=== PATIENT | female | born 1950 | race Two or more races ===

== ENCOUNTER → 2016-03-16 | Outpatient (CLI) | payer MEDICARE, OTHER ==
[2016-03-16 07:43] LABS: Basophils # (A) 0.1 k/uL (0-0.2); Basophils % (A) 2 %; CH 31.9; CHCM 33.6; Eosinophils # (A) 0.2 k/uL (0-0.7); Eosinophils % (A) 3 %; HDW 2.65; HGB 14.3 gm/dL (11.4-16.0); Luc # (Auto) 0.14; Luc % (Auto) 3; Lymphocytes # (A) 1.4 k/uL (1.0-4.8); Lymphocytes % (A) 28 %; MCH 30.9 pg (25.0-35.0); MCHC 32.4 g/dL (31.0-37.0); MCV 95.3 fL (80.0-100.0); Mean Platelet Volume 7.3; Monocytes # (A) 0.4 k/uL (0-1.0); Monocytes % (A) 8 %; Neutrophils # (A) 2.9 k/uL (1.3-7.7); Neutrophils % (A) 56 %; RBC 4.62 m/uL (3.80-5.40); RDW 12.7 % (11.5-15.5); WBC 5.1 k/uL (3.8-10.6); WBC (Perox) 5.35
[2016-03-16 08:54] LABS: ALT 37 U/L (9-52); AST 25 U/L (14-36); Alkaline Phosphatase 60 U/L (38-126); Anion Gap 11 mmol/L; Blood Urea Nitrogen 15 mg/dL (7-17); Calcium 9.9 mg/dL (8.4-10.2); Carbon Dioxide 29 mmol/L (22-30); Chloride 104 mmol/L (98-107); Cholesterol 215 mg/dL (<200); Glucose 107 mg/dL (74-99); HDL Cholesterol 62 mg/dL (40-60); Non-African American GFR(MDRD) >60 (>60 ml/min/1.73 sqM); Potassium 4.3 mmol/L (3.5-5.1); Sodium 144 mmol/L (137-145); Total Bilirubin 0.7 mg/dL (0.2-1.3); Total Protein 7.5 g/dL (6.3-8.2); Triglycerides 334 mg/dL (<150)
[2016-03-16 09:58] LABS: Vitamin B12 281 pg/mL (239-931)
[2016-03-16 12:00] LABS: Hemoglobin A1C 5.8 % (4.2-6.1)
== END | disposition home or self-care (01) ==
LOC: LABWHC1 07:02
PROVIDERS: ATTEND Family Medicine
DX: I10 Essential (primary) hypertension (principal); E78.2 Mixed hyperlipidemia; E11.65 Type 2 diabetes mellitus with hyperglycemia; E55.9 Vitamin D deficiency, unspecified; M79.604 Pain in right leg; I73.9 Peripheral vascular disease, unspecified; E03.9 Hypothyroidism, unspecified
CPT/HCPCS: 36415; 80053; 80061; 82306; 82607; 82746; 83036; 84439; 84443; 85025

== ENCOUNTER → 2016-06-15 | Outpatient (CLI) | payer MEDICARE, OTHER ==
[2016-06-15 07:44] LABS: Cholesterol 249 mg/dL (<200); HDL Cholesterol 68 mg/dL (40-60)
[2016-06-15 07:55] LABS: Triglycerides 536 mg/dL (<150)
== END | disposition home or self-care (01) ==
LOC: LABWHC1 07:01
PROVIDERS: ATTEND Family Medicine
DX: E78.2 Mixed hyperlipidemia (principal); E55.9 Vitamin D deficiency, unspecified; I10 Essential (primary) hypertension
CPT/HCPCS: 36415; 80061; 82306; 83721

== ENCOUNTER → 2016-06-21 | Outpatient (CLI) | payer MEDICARE, OTHER ==
[2016-06-21 11:19] LABS: Blood Urea Nitrogen 18 mg/dL (7-17); Non-African American GFR(MDRD) >60 (>60 ml/min/1.73 sqM)
--- NOTE | 2016-06-21 12:05 | CT ---
EXAMINATION TYPE: CT brain wo/w con DATE OF EXAM: 06/21/2016 11:46 AM COMPARISON: Previous study dated 11/23/2015 HISTORY: Follow up to meningioma CT DLP: 1983.1 mGycm Automated exposure control for dose reduction was used. CONTRAST: CT scan of the head is performed without and with IV Contrast, patient injected with 100 mL of Omnipa que 300. FINDINGS: A 2.4 x 2.4 x 1.8 cm partially calcified right CP angle mass lesion is again identified. Th is shows diffuse, heterogenous enhancement. There has been no significant interval change in size. Central structures are midline. There is no evidence of hydrocephalus. I do not see evidence of intra cranial blood. Visualized portions of the paranasal sinuses and mastoids are clear. No depressed skull lesion is see n. IMPRESSION: STABLE RIGHT CP ANGLE PARTIALLY CALCIFIED MASS LIKELY REPRESENTING AN A MENINGIOMA EXTENDING FROM THE TENTORIUM.
== END | disposition home or self-care (01) ==
LOC: RADCTMAIN 10:44
DX: G93.89 Other specified disorders of brain (principal)
CPT/HCPCS: 82565; 84520; 70470; 36415; Q9967

== ENCOUNTER → 2016-08-02 | Outpatient (CLI) | payer MEDICARE, OTHER ==
[2016-08-02 07:25] LABS: CH 31.6; CHCM 33.1; HCT 40.5 % (34.0-46.0); HDW 2.48; HGB 13.5 gm/dL (11.4-16.0); MCH 31.8 pg (25.0-35.0); MCHC 33.2 g/dL (31.0-37.0); MCV 95.8 fL (80.0-100.0); Mean Platelet Volume 7.2; RBC 4.23 m/uL (3.80-5.40); RDW 13.6 % (11.5-15.5); WBC 5.3 k/uL (3.8-10.6)
[2016-08-02 07:30] LABS: INR 1.1 (<1.1); Prothrombin Time 10.8 sec (9.0-12.0)
[2016-08-02 08:34] LABS: ALT 48 U/L (9-52); AST 32 U/L (14-36); Alkaline Phosphatase 65 U/L (38-126); Anion Gap 13 mmol/L; Blood Urea Nitrogen 13 mg/dL (7-17); Calcium 9.8 mg/dL (8.4-10.2); Carbon Dioxide 26 mmol/L (22-30); Chloride 104 mmol/L (98-107); Glucose 112 mg/dL (74-99); Non-African American GFR(MDRD) >60 (>60 ml/min/1.73 sqM); Potassium 4.9 mmol/L (3.5-5.1); Sodium 143 mmol/L (137-145); Total Bilirubin 0.8 mg/dL (0.2-1.3); Total Protein 6.9 g/dL (6.3-8.2)
== END | disposition home or self-care (01) ==
LOC: LABWHC1 06:40
PROVIDERS: ATTEND Internal Medicine Cardiovascular Disease
DX: I73.9 Peripheral vascular disease, unspecified (principal)
CPT/HCPCS: 36415; 80053; 85027; 85610

== ENCOUNTER → 2016-09-02 | Outpatient (CLI) | payer MEDICARE, OTHER ==
[2016-09-02 15:00] LABS: INR 1.1 (<1.2); Prothrombin Time 10.7 sec (9.0-12.0)
[2016-09-02 15:02] LABS: CH 31.7; CHCM 33.5; HCT 38.9 % (34.0-46.0); HDW 2.63; HGB 13.3 gm/dL (11.4-16.0); MCH 32.4 pg (25.0-35.0); MCHC 34.2 g/dL (31.0-37.0); MCV 94.9 fL (80.0-100.0); Mean Platelet Volume 7.5; RDW 13.4 % (11.5-15.5); WBC 5.1 k/uL (3.8-10.6)
[2016-09-02 15:11] LABS: ALT 32 U/L (9-52); AST 24 U/L (14-36); Alkaline Phosphatase 69 U/L (38-126); Anion Gap 12 mmol/L; Blood Urea Nitrogen 16 mg/dL (7-17); Calcium 9.7 mg/dL (8.4-10.2); Carbon Dioxide 27 mmol/L (22-30); Chloride 101 mmol/L (98-107); Glucose 118 mg/dL (74-99); Non-African American GFR(MDRD) >60 (>60 ml/min/1.73 sqM); Potassium 4.9 mmol/L (3.5-5.1); Sodium 140 mmol/L (137-145); Total Bilirubin 0.6 mg/dL (0.2-1.3); Total Protein 7.4 g/dL (6.3-8.2)
== END | disposition home or self-care (01) ==
LOC: LABWHC1 14:37
PROVIDERS: ATTEND Internal Medicine Cardiovascular Disease
DX: Z01.818 Encounter for other preprocedural examination (principal); I73.9 Peripheral vascular disease, unspecified
CPT/HCPCS: 36415; 80053; 85027; 85610

== ENCOUNTER → 2016-09-24 | Outpatient (CLI) | payer MEDICARE, OTHER ==
[2016-09-24 07:47] LABS: ALT 43 U/L (9-52); AST 31 U/L (14-36); Alkaline Phosphatase 68 U/L (38-126); Anion Gap 10 mmol/L; Blood Urea Nitrogen 9 mg/dL (7-17); Calcium 9.2 mg/dL (8.4-10.2); Carbon Dioxide 26 mmol/L (22-30); Chloride 105 mmol/L (98-107); Cholesterol 244 mg/dL (<200); Glucose 120 mg/dL (74-99); HDL Cholesterol 58 mg/dL (40-60); Non-African American GFR(MDRD) >60 (>60 ml/min/1.73 sqM); Potassium 4.5 mmol/L (3.5-5.1); Sodium 141 mmol/L (137-145); Total Bilirubin 0.8 mg/dL (0.2-1.3); Total Protein 7.1 g/dL (6.3-8.2)
[2016-09-24 07:51] LABS: Basophils % (A) 1 %; CH 32.1; CHCM 33.3; Eosinophils # (A) 0.2 k/uL (0-0.7); Eosinophils % (A) 4 %; HCT 42.2 % (34.0-46.0); HDW 2.67; HGB 13.6 gm/dL (11.4-16.0); Luc # (Auto) 0.14; Luc % (Auto) 3; Lymphocytes # (A) 1.4 k/uL (1.0-4.8); Lymphocytes % (A) 31 %; MCH 31.3 pg (25.0-35.0); MCHC 32.3 g/dL (31.0-37.0); MCV 96.9 fL (80.0-100.0); Mean Platelet Volume 7.6; Monocytes # (A) 0.4 k/uL (0-1.0); Monocytes % (A) 8 %; Neutrophils # (A) 2.3 k/uL (1.3-7.7); Neutrophils % (A) 53 %; RBC 4.36 m/uL (3.80-5.40); RDW 14.5 % (11.5-15.5); WBC 4.5 k/uL (3.8-10.6); WBC (Perox) 4.43
[2016-09-24 13:47] LABS: Hemoglobin A1C 6.1 % (4.2-6.1)
== END | disposition home or self-care (01) ==
LOC: LABWHC1 06:42
PROVIDERS: ATTEND Family Medicine
DX: E78.5 Hyperlipidemia, unspecified (principal); E55.9 Vitamin D deficiency, unspecified; E03.9 Hypothyroidism, unspecified; I10 Essential (primary) hypertension; E11.65 Type 2 diabetes mellitus with hyperglycemia
CPT/HCPCS: 36415; 80053; 80061; 82306; 83036; 84443; 85025

== ENCOUNTER → 2017-05-26 | Outpatient (CLI) | payer MEDICARE, OTHER ==
[2017-05-26 07:41] LABS: Basophils % (A) 1 %; Eosinophils # (A) 0.2 k/uL (0-0.7); Eosinophils % (A) 5 %; HCT 41.6 % (34.0-46.0); Lymphocytes # (A) 1.8 k/uL (1.0-4.8); Lymphocytes % (A) 37 %; MCH 31.2 pg (25.0-35.0); MCHC 33.6 g/dL (31.0-37.0); Mean Platelet Volume 7.3; Monocytes # (A) 0.4 k/uL (0-1.0); Monocytes % (A) 8 %; Neutrophils # (A) 2.2 k/uL (1.3-7.7); Neutrophils % (A) 47 %; Platelet Count 115 k/uL (150-450); RBC 4.48 m/uL (3.80-5.40); RDW 13.2 % (11.5-15.5); WBC 4.8 k/uL (3.8-10.6)
[2017-05-26 07:49] LABS: ALT 41 U/L (9-52); AST 35 U/L (14-36); Albumin 4.5 g/dL (3.5-5.0); Alkaline Phosphatase 63 U/L (38-126); Anion Gap 15 mmol/L; Blood Urea Nitrogen 14 mg/dL (7-17); Calcium 9.5 mg/dL (8.4-10.2); Carbon Dioxide 24 mmol/L (22-30); Chloride 105 mmol/L (98-107); Cholesterol 257 mg/dL (<200); Glucose 124 mg/dL (74-99); HDL Cholesterol 62 mg/dL (40-60); Potassium 4.6 mmol/L (3.5-5.1); Sodium 144 mmol/L (137-145); Total Bilirubin 0.7 mg/dL (0.2-1.3); Total Protein 7.4 g/dL (6.3-8.2); Triglycerides 453 mg/dL (<150)
[2017-05-26 08:05] LABS: T4, Free (Free Thyroxine) 0.91 ng/dL (0.78-2.19)
[2017-05-26 15:38] LABS: Hemoglobin A1C 6.5 % (4.0-6.0)
== END | disposition home or self-care (01) ==
LOC: LABWHC1 06:35
PROVIDERS: ATTEND Nurse Practitioner Family
DX: E03.9 Hypothyroidism, unspecified (principal); E78.2 Mixed hyperlipidemia; I10 Essential (primary) hypertension; E55.9 Vitamin D deficiency, unspecified; E11.65 Type 2 diabetes mellitus with hyperglycemia
CPT/HCPCS: 36415; 80053; 80061; 82306; 83036; 83721; 84439; 84443; 85025

== ENCOUNTER → 2017-06-24 | Outpatient (CLI) | payer MEDICARE, OTHER ==
[2017-06-24 07:45] LABS: HCT 40.1 % (34.0-46.0); HGB 13.4 gm/dL (11.4-16.0); MCH 31.6 pg (25.0-35.0); MCHC 33.4 g/dL (31.0-37.0); MCV 94.8 fL (80.0-100.0); Platelet Count 136 k/uL (150-450); RBC 4.23 m/uL (3.80-5.40); RDW 13.5 % (11.5-15.5)
[2017-06-24 07:48] LABS: Prothrombin Time 10.2 sec (9.0-12.0)
[2017-06-24 08:04] LABS: ALT 45 U/L (9-52); AST 36 U/L (14-36); Albumin 4.6 g/dL (3.5-5.0); Alkaline Phosphatase 59 U/L (38-126); Anion Gap 17 mmol/L; Blood Urea Nitrogen 15 mg/dL (7-17); Calcium 9.6 mg/dL (8.4-10.2); Carbon Dioxide 23 mmol/L (22-30); Chloride 103 mmol/L (98-107); Glucose 103 mg/dL (74-99); Potassium 4.8 mmol/L (3.5-5.1); Sodium 143 mmol/L (137-145); Total Bilirubin 0.6 mg/dL (0.2-1.3); Total Protein 7.2 g/dL (6.3-8.2)
[2017-06-24 11:12] LABS: Iron Saturation 19.77 (12.00-45.00)
[2017-06-24 11:26] LABS: Folate, Serum 21.6 ng/mL
== END | disposition home or self-care (01) ==
LOC: LABWHC1 06:50
PROVIDERS: ATTEND Family Medicine
DX: Z01.812 Encounter for preprocedural laboratory examination (principal); L60.9 Nail disorder, unspecified; I73.9 Peripheral vascular disease, unspecified
CPT/HCPCS: 36415; 80053; 82607; 82728; 82746; 83540; 83550; 85027; 85610; 86038

== ENCOUNTER → 2017-11-14 | Outpatient (CLI) | payer MEDICARE, OTHER ==
[2017-11-14 07:30] LABS: Basophils % (A) 0 %; Eosinophils # (A) 0.1 k/uL (0-0.7); Eosinophils % (A) 2 %; HCT 41.2 % (34.0-46.0); HGB 13.2 gm/dL (11.4-16.0); Lymphocytes # (A) 1.8 k/uL (1.0-4.8); Lymphocytes % (A) 30 %; MCH 30.3 pg (25.0-35.0); MCHC 31.9 g/dL (31.0-37.0); MCV 94.7 fL (80.0-100.0); Mean Platelet Volume 7.3; Monocytes # (A) 0.4 k/uL (0-1.0); Monocytes % (A) 7 %; Neutrophils # (A) 3.5 k/uL (1.3-7.7); Neutrophils % (A) 58 %; Platelet Count 133 k/uL (150-450); RBC 4.35 m/uL (3.80-5.40); RDW 13.9 % (11.5-15.5); WBC 6.1 k/uL (3.8-10.6)
[2017-11-14 07:31] LABS: INR 1.2 (<1.2); Prothrombin Time 11.1 sec (9.0-12.0)
[2017-11-14 09:34] LABS: ALT 40 U/L (9-52); AST 77 U/L (14-36); Albumin 4.4 g/dL (3.5-5.0); Alkaline Phosphatase 61 U/L (38-126); Anion Gap 14 mmol/L; Blood Urea Nitrogen 10 mg/dL (7-17); Calcium 9.4 mg/dL (8.4-10.2); Carbon Dioxide 24 mmol/L (22-30); Chloride 106 mmol/L (98-107); Cholesterol 251 mg/dL (<200); Glucose 115 mg/dL (74-99); HDL Cholesterol 60 mg/dL (40-60); LDL Cholesterol,Calculated 115 mg/dL (0-99); Potassium 4.5 mmol/L (3.5-5.1); Sodium 144 mmol/L (137-145); Total Bilirubin 0.6 mg/dL (0.2-1.3); Total Protein 7.4 g/dL (6.3-8.2); Triglycerides 378 mg/dL (<150)
[2017-11-14 09:50] LABS: T4, Free (Free Thyroxine) 1.19 ng/dL (0.78-2.19)
[2017-11-14 13:50] LABS: Hemoglobin A1C 6.4 % (4.0-6.0)
== END | disposition home or self-care (01) ==
LOC: LABWHC1 06:35
PROVIDERS: ATTEND Nurse Practitioner Family
DX: Z01.812 Encounter for preprocedural laboratory examination (principal); I73.9 Peripheral vascular disease, unspecified; I10 Essential (primary) hypertension; E03.9 Hypothyroidism, unspecified; E11.65 Type 2 diabetes mellitus with hyperglycemia; E78.2 Mixed hyperlipidemia; E55.9 Vitamin D deficiency, unspecified
CPT/HCPCS: 36415; 80053; 80061; 82306; 83036; 84439; 84443; 84481; 85025; 85610

== ENCOUNTER → 2018-01-08 | Outpatient (CLI) | payer MEDICARE, OTHER ==
--- NOTE | 2018-01-08 14:02 | US ---
EXAMINATION TYPE: US venous doppler duplex LE RT DATE OF EXAM: 01/08/2018 1:41 PM COMPARISON: NONE CLINICAL HISTORY: M79.604 RT LEG PAIN. SIDE PERFORMED: Right TECHNIQUE: The lower extremity deep venous system is examined utilizing real time linear array sonog damari with graded compression, doppler sonography and color-flow sonography. VESSELS IMAGED: External Iliac Vein (EIV) Common Femoral Vein Deep Femoral Vein Greater Saphenous Vein * Femoral Vein Popliteal Vein Small Saphenous Vein * Proximal Calf Veins (* superficial vessels) Patient has scarring in groin from arterial surgery, making that aspect of exam technically difficult . Right Leg: Negative for DVT Grayscale, color doppler, spectral doppler imaging performed of the deep veins of the right lower ex tremity. There is normal flow, compressibility, vascular waveforms. IMPRESSION: No ultrasound evidence for acute DVT in the right lower extremity.
== END | disposition home or self-care (01) ==
LOC: RADUSWWP 12:39
PROVIDERS: ATTEND Family Medicine
DX: M79.604 Pain in right leg (principal)

== ENCOUNTER → 2018-07-24 | Outpatient (CLI) | payer MEDICARE, OTHER ==
[2018-07-24 07:38] LABS: Basophils # (A) 0.1 k/uL (0-0.2); Basophils % (A) 1 %; Eosinophils # (A) 0.2 k/uL (0-0.7); Eosinophils % (A) 4 %; HCT 40.5 % (34.0-46.0); HGB 13.2 gm/dL (11.4-16.0); Lymphocytes # (A) 1.9 k/uL (1.0-4.8); Lymphocytes % (A) 35 %; MCH 30.4 pg (25.0-35.0); MCHC 32.6 g/dL (31.0-37.0); MCV 93.3 fL (80.0-100.0); Mean Platelet Volume 6.8; Monocytes # (A) 0.5 k/uL (0-1.0); Monocytes % (A) 8 %; Neutrophils # (A) 2.6 k/uL (1.3-7.7); Neutrophils % (A) 48 %; Platelet Count 126 k/uL (150-450); RBC 4.35 m/uL (3.80-5.40); WBC 5.4 k/uL (3.8-10.6)
[2018-07-24 11:10] LABS: Vitamin D 25 Hydroxy 17.2 ng/mL (30.0-100.0)
[2018-07-24 11:30] LABS: Folate, Serum 14.6 ng/mL
[2018-07-24 11:31] LABS: ALT 27 U/L (8-44); AST 27 U/L (13-35); African American GFR (CKD) 87.8 (60.0-200.0); Albumin/Globulin Ratio 2.24 (1.60-3.17); Alkaline Phosphatase 71 U/L (41-126); BUN/Creat Ratio 16.25 Ratio (12.00-20.00); Calcium 9.8 mg/dL (8.7-10.3); Carbon Dioxide 26.5 mmol/L (21.6-31.8); Chloride 103 mmol/L (96-109); Cholesterol 269 mg/dL (0-200); Globulin 2.1 g/dL (1.6-3.3); Glucose 125 mg/dL (70-110); Potassium 4.7 mmol/L (3.5-5.5); Sodium 140 mmol/L (135-145); Total Bilirubin 0.8 mg/dL (0.2-1.2); Total Protein 6.8 g/dL (6.2-8.2); Uric Acid 7.6 mg/dL (2.9-7.7)
[2018-07-24 17:07] LABS: Hemoglobin A1C 6.7 % (4.0-6.0)
== END | disposition home or self-care (01) ==
LOC: LABWHC1 06:33
PROVIDERS: ATTEND Family Medicine
DX: E11.65 Type 2 diabetes mellitus with hyperglycemia (principal); E78.2 Mixed hyperlipidemia; E03.9 Hypothyroidism, unspecified; I10 Essential (primary) hypertension; E55.9 Vitamin D deficiency, unspecified
CPT/HCPCS: 36415; 80053; 80061; 82043; 82306; 82570; 82607; 82746; 83036; 83721; 84439; 84443; 84481; 84550; 85025

== ENCOUNTER → 2018-10-15 | Outpatient (CLI) | payer MEDICARE, OTHER ==
[2018-10-15 07:37] LABS: Basophils % (A) 1 %; Eosinophils # (A) 0.2 k/uL (0-0.7); Eosinophils % (A) 4 %; HCT 39.5 % (34.0-46.0); Lymphocytes # (A) 1.8 k/uL (1.0-4.8); Lymphocytes % (A) 34 %; MCH 30.3 pg (25.0-35.0); MCHC 32.8 g/dL (31.0-37.0); MCV 92.4 fL (80.0-100.0); Mean Platelet Volume 6.9; Monocytes # (A) 0.4 k/uL (0-1.0); Monocytes % (A) 8 %; Neutrophils # (A) 2.8 k/uL (1.3-7.7); Neutrophils % (A) 50 %; Platelet Count 142 k/uL (150-450); RBC 4.27 m/uL (3.80-5.40); RDW 13.8 % (11.5-15.5); WBC 5.5 k/uL (3.8-10.6)
[2018-10-15 09:16] LABS: Erythrocyte Sedimentation Rate 13 mm/hr (0-20)
[2018-10-15 11:58] LABS: Rheumatoid Factor 5 IU/mL (0-15)
[2018-10-15 12:22] LABS: African American GFR (CKD) 87.8 (60.0-200.0); Albumin 4.7 g/dL (3.80-4.90); Albumin/Globulin Ratio 2.76 (1.60-3.17); Anion Gap 11.1 mmol/L (4.00-12.00); Calcium 9.7 mg/dL (8.7-10.3); Carbon Dioxide 24.9 mmol/L (21.6-31.8); Globulin 1.7 g/dL (1.6-3.3); Potassium 4.8 mmol/L (3.5-5.5); Total Bilirubin 0.5 mg/dL (0.2-1.2); Total Protein 6.4 g/dL (6.2-8.2); Uric Acid 4.7 mg/dL (2.9-7.7)
[2018-10-15 12:56] LABS: Folate, Serum >24.0 ng/mL
== END | disposition home or self-care (01) ==
LOC: LABWHC1 07:00
PROVIDERS: ATTEND Family Medicine
DX: R20.2 Paresthesia of skin (principal); I73.9 Peripheral vascular disease, unspecified; M79.674 Pain in right toe(s)
CPT/HCPCS: 36415; 80053; 82607; 82746; 84550; 85025; 85652; 86038; 86431

== ENCOUNTER → 2019-01-08 | Outpatient (CLI) | payer MEDICARE, OTHER ==
--- NOTE | 2019-01-08 12:21 | CT ---
EXAMINATION TYPE: CT lumbar spine wo con DATE OF EXAM: 01/08/2019 COMPARISON: None HISTORY: Right foot weakness and numbness CT DLP: 474.[address] of the lumbar spine was performed. Bone and soft tissue window settings are submitted as well as coronal and sagittal reconstructions. L1-L2: Normal disc space height. No disc herniation protrusion or central stenosis. No facet joint arthropathy. No evidence for foraminal encroachment. L2-L3: Normal disc space height. No disc herniation protrusion or central stenosis. No facet joint arthropathy. No evidence for foraminal encroachment. L3-L4: Mild to moderate degenerative disc space narrowing. Circumferential disc bulge with effacement ventral thecal sac.. Mild bilateral lateral recess stenosis. No evidence for central stenosis. Mild bilateral foraminal encroachment. L4-L5: Moderate degenerative disc space narrowing. Circumferential disc bulge. Effacement ventral the betty sac. Hypertrophy of the ligamentum flavum and facet joint arthropathy resulting in moderate centr al stenosis. L5-S1: Normal disc space height. No disc herniation protrusion or central stenosis. No facet joint arthropathy. No evidence for foraminal encroachment. No paraspinal masses are identified. Lumbar segments are free of fracture. 3.8 cm infra-abdominal ao rtic aneurysm. IMPRESSION: 1. Moderate central stenosis L4-5 as discussed. 2. Bilateral lateral recess stenosis suspected at L3-4.
== END ==
LOC: RADCTMAIN 11:29
PROVIDERS: ATTEND Family Medicine
DX: M48.061 Spinal stenosis, lumbar region without neurogenic claudication (principal)
CPT/HCPCS: 72131

== ENCOUNTER → 2019-03-02 | Outpatient (CLI) | payer MEDICARE, OTHER ==
[2019-03-02 08:00] LABS: Basophils % (A) 1 %; Eosinophils # (A) 0.2 k/uL (0-0.7); Eosinophils % (A) 3 %; HCT 41.4 % (34.0-46.0); HGB 13.7 gm/dL (11.4-16.0); Lymphocytes # (A) 1.7 k/uL (1.0-4.8); Lymphocytes % (A) 30 %; MCHC 33.2 g/dL (31.0-37.0); MCV 93.5 fL (80.0-100.0); Mean Platelet Volume 7.9; Monocytes # (A) 0.5 k/uL (0-1.0); Monocytes % (A) 8 %; Neutrophils # (A) 3.1 k/uL (1.3-7.7); Neutrophils % (A) 55 %; Platelet Count 148 k/uL (150-450); RBC 4.43 m/uL (3.80-5.40); RDW 13.3 % (11.5-15.5); WBC 5.6 k/uL (3.8-10.6)
[2019-03-02 08:05] LABS: Prothrombin Time 10.2 sec (9.0-12.0)
[2019-03-02 12:55] LABS: Hemoglobin A1C 6.3 % (4.0-6.0)
[2019-03-02 12:56] LABS: African American GFR (CKD) 103.2 (60.0-200.0); Albumin 4.8 g/dL (3.80-4.90); Albumin/Globulin Ratio 2.53 (1.60-3.17); Anion Gap 11.6 mmol/L (4.00-12.00); BUN/Creat Ratio 12.86 Ratio (12.00-20.00); Calcium 9.9 mg/dL (8.7-10.3); Carbon Dioxide 26.4 mmol/L (21.6-31.8); Chol/HDL Ratio 4.58; Globulin 1.9 g/dL (1.6-3.3); Potassium 5.3 mmol/L (3.5-5.5); Total Bilirubin 0.6 mg/dL (0.2-1.2); Total Protein 6.7 g/dL (6.2-8.2)
== END | disposition home or self-care (01) ==
LOC: LABWHC1 06:33
PROVIDERS: ATTEND Internal Medicine Cardiovascular Disease
DX: Z01.810 Encounter for preprocedural cardiovascular examination (principal); Z01.812 Encounter for preprocedural laboratory examination; I73.9 Peripheral vascular disease, unspecified; I10 Essential (primary) hypertension; E78.2 Mixed hyperlipidemia; E11.65 Type 2 diabetes mellitus with hyperglycemia; E55.9 Vitamin D deficiency, unspecified
CPT/HCPCS: 36415; 80053; 80061; 83036; 83721; 84443; 84550; 85025; 85610

== ENCOUNTER → 2019-03-23 | Outpatient (CLI) | payer MEDICARE, OTHER ==
[2019-03-23 07:34] LABS: HCT 39.6 % (34.0-46.0); MCH 30.5 pg (25.0-35.0); MCHC 32.8 g/dL (31.0-37.0); MCV 92.9 fL (80.0-100.0); Mean Platelet Volume 7.5; Platelet Count 129 k/uL (150-450); RBC 4.26 m/uL (3.80-5.40); RDW 13.5 % (11.5-15.5); WBC 5.4 k/uL (3.8-10.6)
[2019-03-23 08:02] LABS: INR 0.9 (<1.2); Prothrombin Time 9.9 sec (9.0-12.0)
[2019-03-23 11:49] LABS: African American GFR (CKD) 76.1 (60.0-200.0); Albumin 4.5 g/dL (3.80-4.90); Albumin/Globulin Ratio 2.37 (1.60-3.17); Anion Gap 11.5 mmol/L (4.00-12.00); BUN/Creat Ratio 15.56 Ratio (12.00-20.00); Calcium 9.2 mg/dL (8.7-10.3); Carbon Dioxide 24.5 mmol/L (21.6-31.8); Globulin 1.9 g/dL (1.6-3.3); Non-African American GFR(CKD) 65.7 (60.0-200.0); Potassium 4.8 mmol/L (3.5-5.5); Total Bilirubin 0.5 mg/dL (0.3-1.2); Total Protein 6.4 g/dL (6.2-8.2)
== END | disposition home or self-care (01) ==
LOC: LABWHC1 06:46
PROVIDERS: ATTEND Internal Medicine Cardiovascular Disease
DX: Z01.818 Encounter for other preprocedural examination (principal); I73.9 Peripheral vascular disease, unspecified
CPT/HCPCS: 36415; 80053; 85027; 85610

== ENCOUNTER → 2019-12-01 | Outpatient (CLI) | payer MEDICARE, OTHER ==
[2019-12-01 07:57] LABS: Basophils % (A) 1 %; Eosinophils # (A) 0.1 k/uL (0-0.7); Eosinophils % (A) 3 %; HCT 42.7 % (34.0-46.0); HGB 13.1 gm/dL (11.4-16.0); Hypochromasia Slight; Lymphocytes # (A) 1.5 k/uL (1.0-4.8); Lymphocytes % (A) 31 %; MCH 28.9 pg (25.0-35.0); MCHC 30.7 g/dL (31.0-37.0); MCV 93.9 fL (80.0-100.0); Mean Platelet Volume 7.5; Monocytes # (A) 0.4 k/uL (0-1.0); Monocytes % (A) 7 %; Neutrophils # (A) 2.6 k/uL (1.3-7.7); Neutrophils % (A) 55 %; Platelet Count 116 k/uL (150-450); RBC 4.55 m/uL (3.80-5.40); WBC 4.8 k/uL (3.8-10.6)
[2019-12-01 11:41] LABS: African American GFR (CKD) 87.2 (60.0-200.0); Albumin 4.6 g/dL (3.80-4.90); Albumin/Globulin Ratio 2.19 (1.60-3.17); Anion Gap 10.6 mmol/L (4.00-12.00); BUN/Creat Ratio 16.25 Ratio (12.00-20.00); Calcium 9.7 mg/dL (8.7-10.3); Carbon Dioxide 25.4 mmol/L (21.6-31.8); Chol/HDL Ratio 4.16; Globulin 2.1 g/dL (1.6-3.3); LDL Cholesterol,Calculated 139.6 mg/dL (0.0-131.0); Non-African American GFR(CKD) 75.2 (60.0-200.0); Potassium 5.7 mmol/L (3.5-5.5); Total Bilirubin 0.8 mg/dL (0.2-1.2); Total Protein 6.7 g/dL (6.2-8.2); Uric Acid 6.6 mg/dL (2.9-7.7); VLDL Calculation 53.4 mg/dL (5.00-40.00)
[2019-12-01 12:20] LABS: Folate, Serum 20.3 ng/mL
[2019-12-01 17:19] LABS: Hemoglobin A1C 6.2 % (4.0-6.0)
== END | disposition home or self-care (01) ==
LOC: LABWHC1 07:11
PROVIDERS: ATTEND Nurse Practitioner Family
DX: E78.2 Mixed hyperlipidemia (principal); E55.9 Vitamin D deficiency, unspecified; E11.65 Type 2 diabetes mellitus with hyperglycemia; I10 Essential (primary) hypertension; I73.9 Peripheral vascular disease, unspecified; M10.9 Gout, unspecified; R20.2 Paresthesia of skin
CPT/HCPCS: 36415; 80053; 80061; 82306; 82607; 82746; 83036; 84443; 84550; 85025

== ENCOUNTER → 2019-12-31 | Outpatient (CLI) | payer MEDICARE, OTHER ==
[2019-12-31 15:18] LABS: African American GFR (CKD) 87.2 (60.0-200.0); Albumin 4.6 g/dL (3.80-4.90); Albumin/Globulin Ratio 2.19 (1.60-3.17); Anion Gap 10.6 mmol/L (4.00-12.00); BUN/Creat Ratio 17.5 Ratio (12.00-20.00); Calcium 9.6 mg/dL (8.7-10.3); Carbon Dioxide 25.4 mmol/L (21.6-31.8); Globulin 2.1 g/dL (1.6-3.3); Non-African American GFR(CKD) 75.2 (60.0-200.0); Potassium 4.6 mmol/L (3.5-5.5); Total Bilirubin 0.8 mg/dL (0.3-1.2); Total Protein 6.7 g/dL (6.2-8.2)
== END | disposition home or self-care (01) ==
LOC: LABWHC1 07:07
PROVIDERS: ATTEND Family Medicine
DX: I10 Essential (primary) hypertension (principal)
CPT/HCPCS: 36415; 80053

== ENCOUNTER → 2020-05-29 | Outpatient (CLI) | payer MEDICARE, OTHER ==
[2020-05-29 15:11] LABS: Basophils # (A) 0.04 X 10*3/uL (0.00-0.10); Basophils % (A) 0.6 %; Eosinophils # (A) 0.12 X 10*3/uL (0.04-0.35); Eosinophils % (A) 1.9 %; HCT 43.8 % (37.2-46.3); HGB 13.4 g/dL (12.0-15.0); Lymphocytes # (A) 1.88 X 10*3/uL (0.90-5.00); Lymphocytes % (A) 29.2 %; MCH 27.5 pg (27.0-32.0); MCHC 30.6 g/dL (32.0-37.0); MCV 89.9 fL (80.0-97.0); Mean Platelet Volume 11.5 fL (9.5-12.2); Monocytes # (A) 0.77 X 10*3/uL (0.20-1.00); Neutrophils # (A) 3.62 X 10*3/uL (1.80-7.70); Neutrophils % (A) 56.1 %; Platelet Count 120 X 10*3/uL (140-440); RBC 4.87 X 10*6/uL (4.10-5.20); RDW 13.6 % (11.5-14.5); WBC 6.44 X 10*3/uL (4.50-10.00)
[2020-05-29 15:56] LABS: African American GFR (CKD) 37.7 (60.0-200.0); Albumin 5.1 g/dL (3.80-4.90); Albumin/Globulin Ratio 2.43 (1.60-3.17); BUN/Creat Ratio 34.38 Ratio (12.00-20.00); Calcium 10.1 mg/dL (8.7-10.3); Chol/HDL Ratio 5.02; Globulin 2.1 g/dL (1.6-3.3); LDL Cholesterol,Calculated 123.2 mg/dL (0.0-131.0); Non-African American GFR(CKD) 32.5 (60.0-200.0); Potassium 5.2 mmol/L (3.5-5.5); Total Bilirubin 0.4 mg/dL (0.2-1.2); Total Protein 7.2 g/dL (6.2-8.2); Uric Acid 7.7 mg/dL (2.9-7.7); VLDL Calculation 57.8 mg/dL (5.00-40.00)
[2020-05-29 17:23] LABS: Hemoglobin A1C 6.4 % (4.0-6.0)
== END | disposition home or self-care (01) ==
LOC: LABWHC1 07:15
PROVIDERS: ATTEND Family Medicine
DX: Z09 Encounter for follow-up examination after completed treatment for conditions other than malignant neoplasm (principal); I11.0 Hypertensive heart disease with heart failure; I25.10 Atherosclerotic heart disease of native coronary artery without angina pectoris; I50.9 Heart failure, unspecified; E11.65 Type 2 diabetes mellitus with hyperglycemia; E55.9 Vitamin D deficiency, unspecified; E03.9 Hypothyroidism, unspecified; E78.2 Mixed hyperlipidemia
CPT/HCPCS: 36415; 80053; 80061; 82306; 83036; 83735; 84443; 84550; 85025

== ENCOUNTER → 2020-06-07 | Outpatient (CLI) | payer MEDICARE, OTHER ==
[2020-06-07 12:51] LABS: African American GFR (CKD) 66.6 (60.0-200.0); Albumin 4.6 g/dL (3.80-4.90); Albumin/Globulin Ratio 2.42 (1.60-3.17); Anion Gap 11.6 mmol/L (4.00-12.00); Calcium 9.4 mg/dL (8.7-10.3); Carbon Dioxide 22.4 mmol/L (21.6-31.8); Globulin 1.9 g/dL (1.6-3.3); Non-African American GFR(CKD) 57.4 (60.0-200.0); Potassium 4.5 mmol/L (3.5-5.5); Total Bilirubin 0.6 mg/dL (0.2-1.2); Total Protein 6.5 g/dL (6.2-8.2)
== END | disposition home or self-care (01) ==
LOC: LABWHC1 07:15
PROVIDERS: ATTEND Family Medicine
DX: R94.4 Abnormal results of kidney function studies (principal)
CPT/HCPCS: 36415; 80053

== ENCOUNTER → 2020-07-06 | Outpatient (CLI) | payer MEDICARE, OTHER ==
[2020-07-06 18:43] LABS: African American GFR (CKD) 86.6 (60.0-200.0); Albumin 4.6 g/dL (3.80-4.90); Albumin/Globulin Ratio 2.09 (1.60-3.17); Anion Gap 13.4 mmol/L (4.00-12.00); BUN/Creat Ratio 12.5 Ratio (12.00-20.00); Calcium 9.4 mg/dL (8.7-10.3); Carbon Dioxide 21.6 mmol/L (21.6-31.8); Globulin 2.2 g/dL (1.6-3.3); Non-African American GFR(CKD) 74.7 (60.0-200.0); Total Bilirubin 0.6 mg/dL (0.3-1.2); Total Protein 6.8 g/dL (6.2-8.2); Uric Acid 5.2 mg/dL (2.9-7.7)
== END | disposition home or self-care (01) ==
LOC: LABWHC1 07:09
PROVIDERS: ATTEND Family Medicine
DX: R94.4 Abnormal results of kidney function studies (principal)
CPT/HCPCS: 36415; 80053; 84550

== ENCOUNTER → 2020-08-21 | Outpatient (CLI) | payer MEDICARE, OTHER ==
[2020-08-21 11:10] LABS: Prothrombin Time 10.9 sec (9.9-11.9)
[2020-08-21 11:27] LABS: MCH 27.7 pg (27.0-32.0); MCHC 31.6 g/dL (32.0-37.0); MCV 87.8 fL (80.0-97.0); Mean Platelet Volume 11.9 fL (9.5-12.2); Platelet Count 103 X 10*3/uL (140-440); RBC 4.33 X 10*6/uL (4.10-5.20); RDW 14.4 % (11.5-14.5)
[2020-08-21 11:46] LABS: African American GFR (CKD) 86.6 (60.0-200.0); Albumin 4.8 g/dL (3.80-4.90); Albumin/Globulin Ratio 1.92 (1.60-3.17); Anion Gap 8.3 mmol/L (4.00-12.00); BUN/Creat Ratio 21.25 Ratio (12.00-20.00); Calcium 9.8 mg/dL (8.7-10.3); Carbon Dioxide 28.7 mmol/L (21.6-31.8); Globulin 2.5 g/dL (1.6-3.3); Non-African American GFR(CKD) 74.7 (60.0-200.0); Potassium 4.1 mmol/L (3.5-5.5); Total Bilirubin 0.9 mg/dL (0.3-1.2); Total Protein 7.3 g/dL (6.2-8.2)
== END | disposition home or self-care (01) ==
LOC: LABWHC1 07:22
PROVIDERS: ATTEND Internal Medicine Cardiovascular Disease
DX: Z01.812 Encounter for preprocedural laboratory examination (principal); I73.9 Peripheral vascular disease, unspecified
CPT/HCPCS: 36415; 80053; 85027; 85610

== ENCOUNTER → 2020-09-08 | Outpatient (CLI) | payer MEDICARE, OTHER ==
[2020-09-08 18:26] LABS: African American GFR (CKD) 75.1 (60.0-200.0); Albumin 4.5 g/dL (3.80-4.90); Albumin/Globulin Ratio 1.8 (1.60-3.17); Anion Gap 13.1 mmol/L (4.00-12.00); BUN/Creat Ratio 13.33 Ratio (12.00-20.00); Calcium 9.5 mg/dL (8.7-10.3); Carbon Dioxide 24.9 mmol/L (21.6-31.8); Chol/HDL Ratio 3.78; Globulin 2.5 g/dL (1.6-3.3); LDL Cholesterol,Calculated 73.6 mg/dL (0.0-131.0); Magnesium 1.8 mg/dL (1.5-2.4); Non-African American GFR(CKD) 64.8 (60.0-200.0); Potassium 4.3 mmol/L (3.5-5.5); Total Bilirubin 0.8 mg/dL (0.2-1.2); VLDL Calculation 62.4 mg/dL (5.00-40.00)
== END | disposition home or self-care (01) ==
LOC: LABWHC1 07:07
PROVIDERS: ATTEND Family Medicine
DX: I42.9 Cardiomyopathy, unspecified (principal); E78.2 Mixed hyperlipidemia; R94.4 Abnormal results of kidney function studies
CPT/HCPCS: 36415; 80053; 80061; 83735

== ENCOUNTER → 2020-12-26 | Outpatient (CLI) | payer MEDICARE, OTHER ==
[2020-12-26 10:53] LABS: Basophils # (A) 0.05 X 10*3/uL (0.00-0.10); Basophils % (A) 0.9 %; Eosinophils # (A) 0.19 X 10*3/uL (0.04-0.35); Eosinophils % (A) 3.4 %; HCT 40.9 % (37.2-46.3); HGB 12.4 g/dL (12.0-15.0); Lymphocytes # (A) 1.61 X 10*3/uL (0.90-5.00); Lymphocytes % (A) 29.2 %; MCH 27.3 pg (27.0-32.0); MCHC 30.3 g/dL (32.0-37.0); MCV 90.1 fL (80.0-97.0); Mean Platelet Volume 11.5 fL (9.5-12.2); Monocytes # (A) 0.53 X 10*3/uL (0.20-1.00); Monocytes % (A) 9.6 %; Neutrophils # (A) 3.12 X 10*3/uL (1.80-7.70); Neutrophils % (A) 56.7 %; Platelet Count 119 X 10*3/uL (140-440); RBC 4.54 X 10*6/uL (4.10-5.20); RDW 16.7 % (11.5-14.5); WBC 5.51 X 10*3/uL (4.50-10.00)
[2020-12-26 16:51] LABS: ALT 11 U/L (8-44); AST 21 U/L (13-35); African American GFR (CKD) 68.8 (60.0-200.0); Albumin 4.9 g/dL (3.8-4.9); Albumin/Globulin Ratio 2.02 (1.60-3.17); Alkaline Phosphatase 82 U/L (41-126); BUN/Creat Ratio 20.35 Ratio (12.00-20.00); Blood Urea Nitrogen 19.7 mg/dL (9.0-27.0); Calcium 9.8 mg/dL (8.7-10.3); Carbon Dioxide 23.2 mmol/L (21.6-31.8); Chloride 101 mmol/L (96-109); Chol/HDL Ratio 4.78 Ratio; Globulin 2.4 g/dL (1.6-3.3); Glucose 121 mg/dL (70-110); LDL Cholesterol,Calculated 180.1 mg/dL (0.0-131.0); Magnesium 2.2 mg/dL (1.5-2.4); Non-African American GFR(CKD) 59.3 (60.0-200.0); Potassium 3.8 mmol/L (3.5-5.5); Sodium 144 mmol/L (135-145); Total Protein 7.3 g/dL (6.2-8.2); Uric Acid 9.2 mg/dL (2.9-7.7)
== END | disposition home or self-care (01) ==
LOC: LABWHC1 07:51
PROVIDERS: ATTEND Family Medicine
DX: E11.65 Type 2 diabetes mellitus with hyperglycemia (principal); I10 Essential (primary) hypertension; E78.2 Mixed hyperlipidemia; E03.9 Hypothyroidism, unspecified
CPT/HCPCS: 36415; 80053; 80061; 82306; 83036; 83735; 84443; 84550; 85025

== ENCOUNTER → 2021-04-04 | Outpatient (CLI) | payer MEDICARE, OTHER ==
[2021-04-04 11:02] LABS: Basophils # (A) 0.06 X 10*3/uL (0.00-0.10); Basophils % (A) 1.3 %; Eosinophils # (A) 0.18 X 10*3/uL (0.04-0.35); Eosinophils % (A) 3.9 %; HGB 12.4 g/dL (12.0-15.0); Immature Grans, Automated 0.4 %; Lymphocytes # (A) 1.65 X 10*3/uL (0.90-5.00); Lymphocytes % (A) 35.7 %; MCH 29.7 pg (27.0-32.0); MCHC 31.8 g/dL (32.0-37.0); MCV 93.3 fL (80.0-97.0); Mean Platelet Volume 10.7 fL (9.5-12.2); Monocytes # (A) 0.68 X 10*3/uL (0.20-1.00); Monocytes % (A) 14.7 %; NRBC Per 100 WBC 0 /100 WBCS (0.0-0.0); Neutrophils # (A) 2.03 X 10*3/uL (1.80-7.70); Platelet Count 124 X 10*3/uL (140-440); RBC 4.18 X 10*6/uL (4.10-5.20); RDW 14.2 % (11.5-14.5); WBC 4.62 X 10*3/uL (4.50-10.00)
[2021-04-04 11:33] LABS: ALT 10 U/L (8-44); AST 18 U/L (13-35); African American GFR (CKD) 58.9 (60.0-200.0); Albumin 4.7 g/dL (3.8-4.9); Albumin/Globulin Ratio 1.88 (1.60-3.17); Alkaline Phosphatase 102 U/L (41-126); BUN/Creat Ratio 22.55 Ratio (12.00-20.00); Blood Urea Nitrogen 24.8 mg/dL (9.0-27.0); Calcium 9.3 mg/dL (8.7-10.3); Carbon Dioxide 23.7 mmol/L (20.0-27.5); Chloride 98 mmol/L (96-109); Chol/HDL Ratio 5.04 Ratio; Globulin 2.5 g/dL (1.6-3.3); Glucose 103 mg/dL (70-110); LDL Cholesterol,Calculated 134.2 mg/dL (0.0-131.0); Magnesium 2.6 mg/dL (1.5-2.4); Non-African American GFR(CKD) 50.8 (60.0-200.0); Potassium 4.1 mmol/L (3.5-5.5); Sodium 138 mmol/L (135-145); Total Protein 7.2 g/dL (6.2-8.2); Uric Acid 8.2 mg/dL (2.9-7.7)
== END | disposition home or self-care (01) ==
LOC: LABWHC1 07:01
PROVIDERS: ATTEND Family Medicine
DX: E78.2 Mixed hyperlipidemia (principal); I10 Essential (primary) hypertension; E03.9 Hypothyroidism, unspecified; E11.65 Type 2 diabetes mellitus with hyperglycemia
CPT/HCPCS: 36415; 80053; 80061; 82306; 82607; 82746; 83036; 83735; 84439; 84443; 84550; 85025

== ENCOUNTER → 2021-04-11 | Outpatient (CLI) | payer MEDICARE, OTHER ==
--- NOTE | 2021-04-11 10:07 | XR ---
EXAMINATION TYPE: XR ribs LT w pa chest xray DATE OF EXAM: 04/11/2021 COMPARISON: NONE HISTORY: Pain TECHNIQUE: Single view of the chest 4 views of the ribs are submitted. FINDINGS: The lungs are clear. No Evidence for pneumothorax. No evidence for focal contusion. Medi astinal structures are midline. Evaluation of the ribs demonstrates a fracture of left rib #7. No ad ditional displaced rib fractures are seen. Incidentally infrarenal abdominal aortic aneurysm measurin g 5.7 cm. IMPRESSION: 1. Fracture of left rib #7.
== END | disposition home or self-care (01) ==
LOC: RADXRMAIN 09:41
PROVIDERS: ATTEND Family Medicine
DX: S22.32XA Fracture of one rib, left side, initial encounter for closed fracture (principal)

== ENCOUNTER → 2021-04-26 | Outpatient (CLI) | payer MEDICARE, OTHER ==
--- NOTE | 2021-04-26 16:27 | US ---
EXAMINATION TYPE: US abdomen complete DATE OF EXAM: 04/26/2021 COMPARISON: Ultrasound abdomen October 20, 2014 CLINICAL HISTORY: R94.4 Abn kidney function study. Elevated BUN/creatinine. EXAM MEASUREMENTS: Liver Length: 14.1 cm Gallbladder Wall: 0.2cm CBD: 0.3 cm Spleen: 11.7 cm Right Kidney: 9.1 x 4.2 x 4.6 cm Left Kidney: 9.2 x 4.1 x 4.6 cm Pancreas: Obscured by bowel gas Liver: wnl Gallbladder: wnl Evidence for sonographic Barton's sign: no CBD: wnl Spleen: wnl Right Kidney: No hydronephrosis or masses seen Left Kidney: No hydronephrosis or masses seen Upper IVC: wnl Abd Aorta: known AAA measuring 3.9 x 3.7 x 4.1cm The liver is homogenous. There is AAA measuring roughly 8 cm in length measuring up to 4.1 cm AP diam eter on this study. Significant intraluminal thrombus redemonstrated. Poor visualization of iliac bi furcation seen, likely no iliac artery extension. There is no evidence of cholelithiasis. Common marcelo e duct is unremarkable. The visualized portions of the pancreas are homogenous. The spleen is unrem arkable. Kidneys are symmetric and free of hydronephrosis. No renal lesions are seen. IMPRESSION: Persistent infrarenal AAA. No hydronephrosis seen bilaterally.
== END | disposition home or self-care (01) ==
LOC: RADUSWWP 14:26
PROVIDERS: ATTEND Family Medicine
DX: I71.4 Abdominal aortic aneurysm, without rupture (principal); R94.4 Abnormal results of kidney function studies
CPT/HCPCS: 76700

== ENCOUNTER → 2021-12-10 | Outpatient (CLI) | payer MEDICARE, OTHER ==
[2021-12-10 14:53] LABS: Basophils # (A) 0.05 X 10*3/uL (0.00-0.10); Basophils % (A) 0.9 %; Eosinophils % (A) 1.9 %; HCT 40.9 % (37.2-46.3); HGB 13.4 g/dL (12.0-15.0); Immature Grans, Automated 0.2 %; Lymphocytes % (A) 36.1 %; MCH 31.2 pg (27.0-32.0); MCHC 32.8 g/dL (32.0-37.0); MCV 95.1 fL (80.0-97.0); Mean Platelet Volume 10.7 fL (9.5-12.2); Monocytes # (A) 0.68 X 10*3/uL (0.20-1.00); Monocytes % (A) 12.9 %; NRBC Per 100 WBC 0 /100 WBCS (0.0-0.0); Neutrophils # (A) 2.53 X 10*3/uL (1.80-7.70); Platelet Count 98 X 10*3/uL (140-440); RDW 13.5 % (11.5-14.5); WBC 5.27 X 10*3/uL (4.50-10.00)
[2021-12-10 15:29] LABS: ALT 16 U/L (8-44); AST 22 U/L (13-35); African American GFR (CKD) 60.5 (60.0-200.0); Albumin 4.8 g/dL (3.8-4.9); Alkaline Phosphatase 84 U/L (41-126); BUN/Creat Ratio 17.29 Ratio (12.00-20.00); Bilirubin, Conjugated <0.20 mg/dL (0.20-0.40); Blood Urea Nitrogen 18.5 mg/dL (9.0-27.0); Calcium 9.6 mg/dL (8.7-10.3); Carbon Dioxide 23.3 mmol/L (20.0-27.5); Chloride 95 mmol/L (96-109); Globulin 2.4 g/dL (1.6-3.3); Glucose 143 mg/dL (70-110); Magnesium 2.1 mg/dL (1.5-2.4); Non-African American GFR(CKD) 52.2 (60.0-200.0); Potassium 3.3 mmol/L (3.5-5.5); Sodium 139 mmol/L (135-145); Total Protein 7.2 g/dL (6.2-8.2)
[2021-12-10 15:42] LABS: Chol/HDL Ratio 4.03 Ratio
== END | disposition home or self-care (01) ==
LOC: LABWHC1 07:01
PROVIDERS: ATTEND Nuclear Medicine Nuclear Cardiology
DX: I10 Essential (primary) hypertension (principal); E11.65 Type 2 diabetes mellitus with hyperglycemia; I42.9 Cardiomyopathy, unspecified; I73.9 Peripheral vascular disease, unspecified; E78.2 Mixed hyperlipidemia; E79.0 Hyperuricemia without signs of inflammatory arthritis and tophaceous disease; D59.12 Cold autoimmune hemolytic anemia
CPT/HCPCS: 36415; 80053; 80061; 82248; 82306; 82607; 82746; 83036; 83721; 83735; 84443; 85025

== ENCOUNTER → 2021-12-31 | Outpatient (CLI) | payer MEDICARE, OTHER ==
[2021-12-31 10:44] LABS: Basophils # (A) 0.05 X 10*3/uL (0.00-0.10); Eosinophils # (A) 0.09 X 10*3/uL (0.04-0.35); Eosinophils % (A) 1.7 %; HCT 42.7 % (37.2-46.3); Immature Grans, Automated 0.2 %; Lymphocytes # (A) 1.43 X 10*3/uL (0.90-5.00); Lymphocytes % (A) 27.6 %; MCH 31.5 pg (27.0-32.0); MCHC 32.8 g/dL (32.0-37.0); Mean Platelet Volume 11.2 fL (9.5-12.2); Monocytes # (A) 0.57 X 10*3/uL (0.20-1.00); NRBC Per 100 WBC 0 /100 WBCS (0.0-0.0); Neutrophils # (A) 3.03 X 10*3/uL (1.80-7.70); Neutrophils % (A) 58.5 %; Platelet Count 109 X 10*3/uL (140-440); RBC 4.45 X 10*6/uL (4.10-5.20); RDW 13.1 % (11.5-14.5); WBC 5.18 X 10*3/uL (4.50-10.00)
[2022-01-01 01:34] LABS: % Iron Saturation 17.79 (12.00-45.00); African American GFR (CKD) 42.6 (60.0-200.0); Anion Gap 27.3 mmol/L (10.00-18.00); BUN/Creat Ratio 17.41 Ratio (12.00-20.00); Blood Urea Nitrogen 24.9 mg/dL (9.0-27.0); Calcium 10.1 mg/dL (8.7-10.3); Carbon Dioxide 17.7 mmol/L (20.0-27.5); Non-African American GFR(CKD) 36.8 (60.0-200.0); Potassium 3.7 mmol/L (3.5-5.5)
== END | disposition home or self-care (01) ==
LOC: LABWHC1 07:03
PROVIDERS: ATTEND Family Medicine
DX: D69.6 Thrombocytopenia, unspecified (principal); I10 Essential (primary) hypertension; E11.65 Type 2 diabetes mellitus with hyperglycemia; E78.2 Mixed hyperlipidemia; E87.6 Hypokalemia
CPT/HCPCS: 36415; 80048; 82728; 83540; 83550; 85025; 86038

== ENCOUNTER → 2022-03-12 | Outpatient (CLI) | payer MEDICARE, OTHER ==
[2022-03-12 10:19] LABS: Basophils # (A) 0.06 X 10*3/uL (0.00-0.10); Basophils % (A) 1.2 %; Eosinophils # (A) 0.11 X 10*3/uL (0.04-0.35); Eosinophils % (A) 2.2 %; HCT 37.4 % (37.2-46.3); HGB 12.1 g/dL (12.0-15.0); Immature Grans, Automated 0.2 %; Lymphocytes # (A) 1.48 X 10*3/uL (0.90-5.00); Lymphocytes % (A) 29.8 %; MCH 31.3 pg (27.0-32.0); MCHC 32.4 g/dL (32.0-37.0); MCV 96.9 fL (80.0-97.0); Mean Platelet Volume 10.1 fL (9.5-12.2); Monocytes # (A) 0.54 X 10*3/uL (0.20-1.00); Monocytes % (A) 10.9 %; NRBC Per 100 WBC 0 /100 WBCS (0.0-0.0); Neutrophils # (A) 2.76 X 10*3/uL (1.80-7.70); Neutrophils % (A) 55.7 %; Platelet Count 147 X 10*3/uL (140-440); RBC 3.86 X 10*6/uL (4.10-5.20); WBC 4.96 X 10*3/uL (4.50-10.00)
[2022-03-12 10:50] LABS: ALT 8 U/L (8-44); AST 18 U/L (13-35); African American GFR (CKD) 58.5 (60.0-200.0); Albumin 4.6 g/dL (3.8-4.9); Alkaline Phosphatase 75 U/L (41-126); BUN/Creat Ratio 13.82 Ratio (12.00-20.00); Blood Urea Nitrogen 15.2 mg/dL (9.0-27.0); Calcium 9.8 mg/dL (8.7-10.3); Carbon Dioxide 26.7 mmol/L (20.0-27.5); Chloride 96 mmol/L (96-109); Chol/HDL Ratio 4.92 Ratio; Globulin 2.7 g/dL (1.6-3.3); Glucose 110 mg/dL (70-110); LDL Cholesterol,Calculated 119.2 mg/dL (0.0-131.0); Non-African American GFR(CKD) 50.5 (60.0-200.0); Potassium 3.8 mmol/L (3.5-5.5); Sodium 137 mmol/L (135-145); Total Protein 7.3 g/dL (6.2-8.2); Uric Acid 7.9 mg/dL (2.9-7.7)
== END | disposition home or self-care (01) ==
LOC: LABWHC1 07:17
PROVIDERS: ATTEND Family Medicine
DX: I10 Essential (primary) hypertension (principal); E78.2 Mixed hyperlipidemia; E11.65 Type 2 diabetes mellitus with hyperglycemia; E03.9 Hypothyroidism, unspecified; E55.9 Vitamin D deficiency, unspecified
CPT/HCPCS: 36415; 80053; 80061; 82306; 82607; 82746; 83036; 83735; 84443; 84550; 85025

== ENCOUNTER → 2022-05-07 | Outpatient (CLI) | payer MEDICARE, OTHER ==
[2022-05-07 14:30] LABS: Basophils # (A) 0.06 X 10*3/uL (0.00-0.10); Basophils % (A) 1.3 %; Eosinophils # (A) 0.15 X 10*3/uL (0.04-0.35); Eosinophils % (A) 3.4 %; HCT 41.3 % (37.2-46.3); HGB 13.6 g/dL (12.0-15.0); Immature Grans, Automated 0 %; Lymphocytes # (A) 1.65 X 10*3/uL (0.90-5.00); Lymphocytes % (A) 37.1 %; MCH 31.8 pg (27.0-32.0); MCHC 32.9 g/dL (32.0-37.0); MCV 96.5 fL (80.0-97.0); Mean Platelet Volume 11.2 fL (9.5-12.2); Monocytes % (A) 11.2 %; NRBC Per 100 WBC 0 /100 WBCS (0.0-0.0); Neutrophils # (A) 2.09 X 10*3/uL (1.80-7.70); Platelet Count 118 X 10*3/uL (140-440); RBC 4.28 X 10*6/uL (4.10-5.20); RDW 13.3 % (11.5-14.5); WBC 4.45 X 10*3/uL (4.50-10.00)
[2022-05-07 15:50] LABS: % Iron Saturation 31.22 (12.00-45.00); African American GFR (CKD) 73.1 (60.0-200.0); Anion Gap 18.2 mmol/L (10.00-18.00); BUN/Creat Ratio 18.03 Ratio (12.00-20.00); Blood Urea Nitrogen 16.5 mg/dL (9.0-27.0); Carbon Dioxide 23.4 mmol/L (20.0-27.5); Magnesium 1.9 mg/dL (1.5-2.4); Non-African American GFR(CKD) 63.1 (60.0-200.0); Potassium 4.1 mmol/L (3.5-5.5); Uric Acid 6.8 mg/dL (2.9-7.7)
[2022-05-07 15:56] LABS: Appearance,Urine Clear (Clear); Bilirubin,Urine Negative (Negative); Blood,Urine Negative (Negative); Color,Urine Yellow (Yellow); Ketones,Urine Negative (Negative); Nitrite,Urine Negative (Negative); Specific Gravity,Urine 1.005 (1.001-1.030); Urobilinogen,Urine 0.2 (0.2,1.0)
[2022-05-07 16:00] LABS: Bacteria,Urine None Seen /HPF (None Seen)
[2022-05-07 16:06] LABS: Ferritin 89.6 ng/mL (10.0-291.0)
[2022-05-07 16:07] LABS: Albumin 4.7 g/dL (3.8-4.9)
[2022-05-07 17:42] LABS: Urine Creatinine 32.3 mg/dL (28.0-217.0)
[2022-05-07 18:28] LABS: Protein, Total 7.5 g/dL (6.2-8.2)
[2022-05-08 19:17] LABS: Albumin 4.72 g/dL (3.80-4.90); Gamma Globulin 0.76 g/dL (0.70-1.50)
== END | disposition home or self-care (01) ==
LOC: LABWHC1 07:01
PROVIDERS: ATTEND Internal Medicine Nephrology
DX: E55.9 Vitamin D deficiency, unspecified (principal); N25.81 Secondary hyperparathyroidism of renal origin; M10.9 Gout, unspecified; N18.31 Chronic kidney disease, stage 3a; N39.0 Urinary tract infection, site not specified; D63.1 Anemia in chronic kidney disease
CPT/HCPCS: 36415; 80048; 81001; 82040; 82043; 82306; 82570; 82728; 83540; 83550; 83735; 83970; 84100; 84165; 84550; 85025; 86334; 86335

== ENCOUNTER → 2022-10-07 | Outpatient (CLI) | payer MEDICARE, OTHER ==
[2022-10-07 11:02] LABS: Basophils # (A) 0.03 X 10*3/uL (0.00-0.10); Basophils % (A) 0.6 %; Eosinophils # (A) 0.15 X 10*3/uL (0.04-0.35); Eosinophils % (A) 3.2 %; HGB 13.8 d/dL (12.0-15.0); Lymphocytes # (A) 1.75 X 10*3/uL (0.90-5.00); Lymphocytes % (A) 37.8 %; MCH 32.8 pg (27.0-32.0); MCHC 33.7 d/dL (32.0-37.0); MCV 97.4 FL (80.0-97.0); Mean Platelet Volume 11.1 FL (9.5-12.2); Monocytes # (A) 0.52 X 10*3/uL (0.20-1.00); Monocytes % (A) 11.2 %; NRBC Per 100 WBC 0 X 10*3/uL (0.00-0.01); Neutrophils # (A) 2.17 X 10*3/uL (1.80-7.70); Platelet Count 107 X 10*3/uL (140-440); RBC 4.21 X 10*6/uL (4.10-5.20); RDW 12.6 % (11.5-14.5); WBC 4.63 X 10*3/uL (4.50-10.00)
[2022-10-07 11:30] LABS: % Iron Saturation 27.59 (12.00-45.00); ALT 16 U/L (8-44); AST 25 U/L (13-35); Albumin/Globulin Ratio 2.17 Ratio (1.60-3.17); Alkaline Phosphatase 60 U/L (41-126); BUN/Creat Ratio 21.09 Ratio (12.00-20.00); Blood Urea Nitrogen 23.2 mg/dL (9.0-27.0); Calcium 10.1 mg/dL (8.7-10.3); Carbon Dioxide 28.7 mmol/L (21.6-31.8); Chloride 99 mmol/L (96-109); Ferritin 76.8 ng/mL (10.0-291.0); Globulin 2.3 d/dL (1.6-3.3); Glucose 120 mg/dL (70-110); Iron 109 UG/DL (50-170); LDL Cholesterol,Calculated 164.8 mg/dL (0.0-131.0); Potassium 4.6 mmol/L (3.5-5.5); Sodium 140 mmol/L (135-145); Total Bilirubin 0.8 mg/dL (0.3-1.2); Total Iron Binding Capacity 395 UG/DL (228-460); Total Protein 7.3 d/dL (6.2-8.2); Uric Acid 10.1 mg/dL (2.9-7.7)
[2022-10-07 11:36] LABS: Microalbumin Creatinine Ratio <49 mg/g Cr (0-30); Urine Creatinine 24.6 mg/dL (28.0-217.0)
== END | disposition home or self-care (01) ==
LOC: LABWHC1 06:55
PROVIDERS: ATTEND Family Medicine
DX: I10 Essential (primary) hypertension (principal); E78.2 Mixed hyperlipidemia; E11.65 Type 2 diabetes mellitus with hyperglycemia
CPT/HCPCS: 36415; 80053; 80061; 82043; 82306; 82570; 82607; 82728; 82746; 83036; 83540; 83550; 83735; 84439; 84443; 84550; 85025

== ENCOUNTER → 2022-12-20 | Outpatient (CLI) | payer MEDICARE, OTHER ==
[2022-12-20 16:00] LABS: Basophils # (A) 0.04 X 10*3/uL (0.00-0.10); Basophils % (A) 0.5 %; Eosinophils # (A) 0.11 X 10*3/uL (0.04-0.35); Eosinophils % (A) 1.5 %; HCT 40.4 % (37.2-46.3); HGB 13.2 g/dL (12.0-15.0); Lymphocytes # (A) 1.29 X 10*3/uL (0.90-5.00); Lymphocytes % (A) 17.5 %; MCH 31.9 pg (27.0-32.0); MCHC 32.7 g/dL (32.0-37.0); MCV 97.6 FL (80.0-97.0); Monocytes # (A) 0.68 X 10*3/uL (0.20-1.00); Monocytes % (A) 9.2 %; NRBC Per 100 WBC 0 X 10*3/uL (0.00-0.01); Neutrophils # (A) 5.22 X 10*3/uL (1.80-7.70); Neutrophils % (A) 70.9 %; Platelet Count 102 X 10*3/uL (140-440); RBC 4.14 X 10*6/uL (4.10-5.20); RDW 13.2 % (11.5-14.5); WBC 7.37 X 10*3/uL (4.50-10.00)
[2022-12-20 16:33] LABS: % Iron Saturation 17.09 (12.00-45.00); Albumin 4.6 g/dL (3.8-4.9); BUN/Creat Ratio 21.18 Ratio (12.00-20.00); Blood Urea Nitrogen 23.3 mg/dL (9.0-27.0); Calcium 9.8 mg/dL (8.7-10.3); Carbon Dioxide 26.7 mmol/L (21.6-31.8); Chloride 99 mmol/L (96-109); Glucose 97 mg/dL (70-110); Iron 60 UG/DL (50-170); Magnesium 2.1 mg/dL (1.5-2.4); Phosphorus 3.7 mg/dL (2.4-5.1); Potassium 4.4 mmol/L (3.5-5.5); Sodium 141 mmol/L (135-145); Total Iron Binding Capacity 351 UG/DL (228-460); Uric Acid 6.5 mg/dL (2.9-7.7)
[2022-12-20 16:38] LABS: Appearance,Urine Clear (Clear); Bilirubin,Urine Negative (Negative); Blood,Urine Negative (Negative); Color,Urine Yellow (Yellow); Ketones,Urine Trace (Negative); Nitrite,Urine Negative (Negative); Specific Gravity,Urine 1.013 (1.001-1.030)
[2022-12-20 16:45] LABS: Bacteria,Urine None Seen (None Seen)
== END | disposition home or self-care (01) ==
LOC: LABWHC1 06:58
PROVIDERS: ATTEND Internal Medicine Nephrology
DX: N17.9 Acute kidney failure, unspecified (principal); M10.9 Gout, unspecified; N25.81 Secondary hyperparathyroidism of renal origin; N39.0 Urinary tract infection, site not specified; E55.9 Vitamin D deficiency, unspecified; D64.9 Anemia, unspecified
CPT/HCPCS: 36415; 80048; 81001; 82040; 82043; 82306; 82570; 82728; 83540; 83550; 83735; 83970; 84100; 84550; 85025

== ENCOUNTER → 2023-04-04 | Outpatient (CLI) | payer MEDICARE, OTHER ==
[2023-04-04 11:06] LABS: ALT 14 U/L (8-44); AST 26 U/L (13-35); Albumin/Globulin Ratio 1.79 Ratio (1.60-3.17); Alkaline Phosphatase 66 U/L (41-126); Bilirubin, Conjugated <0.20 mg/dL (0.20-0.40); Bilirubin,Unconjugated >0.40 mg/dL (0.20-1.00); Chol/HDL Ratio 4.83 Ratio; Globulin 2.8 g/dL (1.6-3.3); Total Bilirubin 0.6 mg/dL (0.3-1.2); Total Protein 7.8 g/dL (6.2-8.2)
== END | disposition home or self-care (01) ==
LOC: LABWHC1 07:00
PROVIDERS: ATTEND Nuclear Medicine Nuclear Cardiology
DX: E78.2 Mixed hyperlipidemia (principal)
CPT/HCPCS: 36415; 80061; 80076; 83721

== ENCOUNTER → 2023-04-22 | Outpatient (CLI) | payer MEDICARE, OTHER ==
[2023-04-22 11:14] LABS: Basophils # (A) 0.06 X 10*3/uL (0.00-0.10); Basophils % (A) 1.1 %; Eosinophils # (A) 0.47 X 10*3/uL (0.04-0.35); Eosinophils % (A) 8.5 %; HCT 40.8 % (37.2-46.3); HGB 13.2 g/dL (12.0-15.0); Lymphocytes # (A) 1.33 X 10*3/uL (0.90-5.00); Lymphocytes % (A) 24.1 %; MCH 31.7 pg (27.0-32.0); MCHC 32.4 g/dL (32.0-37.0); MCV 97.8 FL (80.0-97.0); Mean Platelet Volume 11.5 FL (9.5-12.2); Monocytes # (A) 0.49 X 10*3/uL (0.20-1.00); Monocytes % (A) 8.9 %; NRBC Per 100 WBC 0 X 10*3/uL (0.00-0.01); Neutrophils # (A) 3.16 X 10*3/uL (1.80-7.70); Platelet Count 94 X 10*3/uL (140-440); RBC 4.17 X 10*6/uL (4.10-5.20); RDW 13.3 % (11.5-14.5); WBC 5.53 X 10*3/uL (4.50-10.00)
[2023-04-22 11:29] LABS: Urine Creatinine 59.5 mg/dL (28.0-217.0)
[2023-04-22 11:44] LABS: ALT 11 U/L (8-44); AST 24 U/L (13-35); Albumin 4.7 g/dL (3.8-4.9); Albumin/Globulin Ratio 1.81 Ratio (1.60-3.17); Alkaline Phosphatase 64 U/L (41-126); Blood Urea Nitrogen 30.6 mg/dL (9.0-27.0); Calcium 9.8 mg/dL (8.7-10.3); Carbon Dioxide 25.4 mmol/L (21.6-31.8); Chloride 99 mmol/L (96-109); Chol/HDL Ratio 4.27 Ratio; Globulin 2.6 g/dL (1.6-3.3); Glucose 105 mg/dL (70-110); LDL Cholesterol,Calculated 133.6 mg/dL (0.0-131.0); Potassium 3.7 mmol/L (3.5-5.5); Sodium 140 mmol/L (135-145); Total Bilirubin 0.9 mg/dL (0.3-1.2); Total Protein 7.3 g/dL (6.2-8.2)
== END | disposition home or self-care (01) ==
LOC: LABWHC1 07:03
PROVIDERS: ATTEND Family Medicine
DX: I10 Essential (primary) hypertension (principal); E11.65 Type 2 diabetes mellitus with hyperglycemia; E78.2 Mixed hyperlipidemia; E03.9 Hypothyroidism, unspecified
CPT/HCPCS: 36415; 80053; 80061; 82043; 82306; 82570; 82607; 82746; 83036; 84443; 84550; 85025

== ENCOUNTER → 2023-08-27 | Outpatient (CLI) | payer MEDICARE, OTHER ==
[2023-08-27 10:15] LABS: Appearance,Urine Clear (Clear); Bilirubin,Urine Negative (Negative); Blood,Urine Negative (Negative); Color,Urine Yellow (Yellow); Ketones,Urine Negative (Negative); Nitrite,Urine Negative (Negative); PH, Urine 6.5; Specific Gravity,Urine 1.009 (1.001-1.030); Urobilinogen,Urine 0.2 E.U./DL
[2023-08-27 10:22] LABS: Bacteria,Urine None Seen (None Seen)
[2023-08-27 11:00] LABS: Microalbumin Creatinine Ratio <20 mg/g Cr (0-30); Urine Creatinine 61.5 mg/dL (28.0-217.0)
[2023-08-27 15:37] LABS: Basophils # (A) 0.06 X 10*3/uL (0.00-0.10); Basophils % (A) 1.1 %; Eosinophils # (A) 0.15 X 10*3/uL (0.04-0.35); Eosinophils % (A) 2.8 %; HCT 39.4 % (37.2-46.3); Lymphocytes # (A) 1.41 X 10*3/uL (0.90-5.00); Lymphocytes % (A) 26.4 %; Mean Platelet Volume 10.6 FL (9.5-12.2); Monocytes # (A) 0.59 X 10*3/uL (0.20-1.00); NRBC Per 100 WBC 0 X 10*3/uL (0.00-0.01); Neutrophils # (A) 3.12 X 10*3/uL (1.80-7.70); Neutrophils % (A) 58.3 %; Platelet Count 114 X 10*3/uL (140-440); RBC 4.06 X 10*6/uL (4.10-5.20); RDW 12.4 % (11.5-14.5); WBC 5.35 X 10*3/uL (4.50-10.00)
[2023-08-27 16:21] LABS: % Iron Saturation 21.26 (12.00-45.00); BUN/Creat Ratio 23.91 Ratio (12.00-20.00); Blood Urea Nitrogen 26.3 mg/dL (9.0-27.0); Calcium 9.6 mg/dL (8.7-10.3); Carbon Dioxide 24.6 mmol/L (21.6-31.8); Chloride 102 mmol/L (96-109); Glucose 119 mg/dL (70-110); Iron 81 UG/DL (50-170); Magnesium 2.4 mg/dL (1.5-2.4); Phosphorus 4.1 mg/dL (2.4-5.1); Potassium 4.1 mmol/L (3.5-5.5); Sodium 141 mmol/L (135-145); Total Iron Binding Capacity 381 UG/DL (228-460); Uric Acid 5.4 mg/dL (2.9-7.7)
[2023-08-27 16:22] LABS: Albumin 4.8 g/dL (3.8-4.9)
== END | disposition home or self-care (01) ==
LOC: LABWHC1 07:15
PROVIDERS: ATTEND Internal Medicine Nephrology
DX: E55.9 Vitamin D deficiency, unspecified (principal); E21.3 Hyperparathyroidism, unspecified; M10.9 Gout, unspecified; N39.0 Urinary tract infection, site not specified; N18.31 Chronic kidney disease, stage 3a; D63.1 Anemia in chronic kidney disease; R80.9 Proteinuria, unspecified
CPT/HCPCS: 36415; 80048; 81001; 82040; 82043; 82306; 82570; 82728; 83540; 83550; 83735; 83970; 84100; 84550; 85025

== ENCOUNTER → 2023-09-05 | Outpatient (CLI) | payer MEDICARE, OTHER ==
[2023-09-05 10:25] LABS: ALT 12 U/L (8-44); AST 20 U/L (13-35); Albumin 4.7 g/dL (3.8-4.9); Albumin/Globulin Ratio 1.88 Ratio (1.60-3.17); Alkaline Phosphatase 77 U/L (41-126); Bilirubin, Conjugated <0.20 mg/dL (0.20-0.40); Bilirubin,Unconjugated >0.30 mg/dL (0.20-1.00); Chol/HDL Ratio 4.79 Ratio; Globulin 2.5 g/dL (1.6-3.3); LDL Cholesterol,Calculated 136.9 mg/dL (0.0-131.0); Total Bilirubin 0.5 mg/dL (0.3-1.2); Total Protein 7.2 g/dL (6.2-8.2)
== END | disposition home or self-care (01) ==
LOC: LABWHC1 06:57
PROVIDERS: ATTEND Nuclear Medicine Nuclear Cardiology
DX: D59.12 Cold autoimmune hemolytic anemia (principal); E78.2 Mixed hyperlipidemia
CPT/HCPCS: 36415; 80061; 80076

== ENCOUNTER → 2023-12-01 | Outpatient (CLI) | payer MEDICARE, OTHER ==
[2023-12-01 10:42] LABS: Basophils # (A) 0.06 X 10*3/uL (0.00-0.10); Basophils % (A) 1.1 %; Eosinophils # (A) 0.28 X 10*3/uL (0.04-0.35); Eosinophils % (A) 5.2 %; HCT 39.7 % (37.2-46.3); Lymphocytes # (A) 1.77 X 10*3/uL (0.90-5.00); Lymphocytes % (A) 32.7 %; MCH 31.9 pg (27.0-32.0); MCHC 32.7 g/dL (32.0-37.0); MCV 97.5 FL (80.0-97.0); Mean Platelet Volume 11.2 FL (9.5-12.2); Monocytes % (A) 11.1 %; NRBC Per 100 WBC 0 X 10*3/uL (0.00-0.01); Neutrophils # (A) 2.69 X 10*3/uL (1.80-7.70); Neutrophils % (A) 49.7 %; Platelet Count 112 X 10*3/uL (140-440); RBC 4.07 X 10*6/uL (4.10-5.20); RDW 13.1 % (11.5-14.5); WBC 5.41 X 10*3/uL (4.50-10.00)
[2023-12-01 11:15] LABS: Urine Creatinine 48.9 mg/dL (28.0-217.0)
[2023-12-01 11:17] LABS: ALT 12 U/L (8-44); AST 21 U/L (13-35); Albumin 4.6 g/dL (3.8-4.9); Albumin/Globulin Ratio 1.84 Ratio (1.60-3.17); Alkaline Phosphatase 75 U/L (41-126); BUN/Creat Ratio 21.62 Ratio (12.00-20.00); Blood Urea Nitrogen 28.1 mg/dL (9.0-27.0); Calcium 9.5 mg/dL (8.7-10.3); Carbon Dioxide 22.2 mmol/L (21.6-31.8); Chloride 98 mmol/L (96-109); Chol/HDL Ratio 4.58 Ratio; Globulin 2.5 g/dL (1.6-3.3); Glucose 118 mg/dL (70-110); LDL Cholesterol,Calculated 137.8 mg/dL (0.0-131.0); Phosphorus 4.2 mg/dL (2.4-5.1); Potassium 4.2 mmol/L (3.5-5.5); Sodium 138 mmol/L (135-145); Total Bilirubin 0.5 mg/dL (0.3-1.2); Total Protein 7.1 g/dL (6.2-8.2); Uric Acid 5.1 mg/dL (2.9-7.7)
== END | disposition home or self-care (01) ==
LOC: LABWHC1 07:05
PROVIDERS: ATTEND Family Medicine
CPT/HCPCS: 36415; 80053; 80061; 82043; 82306; 82570; 82607; 82728; 82746; 83036; 84100; 84439; 84443; 84550; 85025

== ENCOUNTER → 2024-02-25 | Outpatient (CLI) | payer MEDICARE, OTHER ==
[2024-02-25 09:27] LABS: Appearance,Urine Cloudy (Clear); Bacteria,Urine Occasional /hpf; Bilirubin,Urine Negative (Negative); Blood,Urine Trace (Negative); Color,Urine Colorless; Glucose,Urine (UA) Negative (Negative); Hyaline Casts,Urine 2 /lpf (0-2); Ketones,Urine Negative (Negative); Leukocyte Esterase,Urine Large (Negative); Nitrite,Urine Negative (Negative); PH, Urine 6.5 (5.0-8.0); Protein,Urine Negative (Negative); RBC,Urine 8 /hpf (0-5); Specific Gravity,Urine 1.007 (1.001-1.035); Squamous Epithelial Cell,Urine 1 /hpf (0-4); Urobilinogen,Urine <2.0 mg/dL (<2.0); WBC,Urine >182 /hpf (0-5)
[2024-02-25 10:27] LABS: ALT 9 U/L (8-44); AST 22 U/L (13-35); Albumin 4.2 g/dL (3.8-4.9); Albumin/Globulin Ratio 1.75 Ratio (1.60-3.17); Alkaline Phosphatase 65 U/L (41-126); BUN/Creat Ratio 21.46 Ratio (12.00-20.00); Blood Urea Nitrogen 27.9 mg/dL (9.0-27.0); Calcium 9.4 mg/dL (8.7-10.3); Carbon Dioxide 26.6 mmol/L (21.6-31.8); Chloride 104 mmol/L (96-109); Globulin 2.4 g/dL (1.6-3.3); Glucose 95 mg/dL (70-110); Phosphorus 4.2 mg/dL (2.4-5.1); Potassium 4.1 mmol/L (3.5-5.5); Sodium 142 mmol/L (135-145); Total Bilirubin 0.4 mg/dL (0.3-1.2); Total Protein 6.6 g/dL (6.2-8.2)
[2024-02-25 10:35] LABS: HCT 37.5 % (37.2-46.3); HGB 12.3 g/dL (12.0-15.0); MCH 31.1 pg (27.0-32.0); MCHC 32.8 g/dL (32.0-37.0); MCV 94.9 FL (80.0-97.0); Mean Platelet Volume 10.6 FL (9.5-12.2); NRBC Per 100 WBC 0 X 10*3/uL (0.00-0.01); Platelet Count 95 X 10*3/uL (140-440); RBC 3.95 X 10*6/uL (4.10-5.20); RDW 13.7 % (11.5-14.5); WBC 5.91 X 10*3/uL (4.50-10.00)
[2024-02-25 11:40] LABS: Creatinine,Urine Random 34.2 mg/dL; Protein/Creatinine Ratio,Urine 0.585
[2024-02-25 12:26] LABS: Magnesium 2.2 mg/dL (1.5-2.4)
[2024-02-25 18:06] LABS: Urine Creatinine 34.6 mg/dL (28.0-217.0)
== END | disposition home or self-care (01) ==
LOC: LABWHC1 07:05
PROVIDERS: ATTEND Internal Medicine Nephrology
DX: N18.31 Chronic kidney disease, stage 3a (principal)
CPT/HCPCS: 36415; 80053; 81001; 82043; 82570; 83735; 84100; 84156; 85027

== ENCOUNTER 2024-02-27 13:24 | Observation (INO) | payer MEDICARE, OTHER ==
[2024-02-27 14:39] LABS: Basophils % (A) 1 %; Eosinophils # (A) 0.1 k/uL (0-0.7); Eosinophils % (A) 2 %; HCT 34.7 % (34.0-46.0); HGB 11.8 gm/dL (11.4-16.0); INR 0.9 (<1.2); Lymphocytes # (A) 1.3 k/uL (1.0-4.8); Lymphocytes % (A) 22 %; MCH 32.4 pg (25.0-35.0); MCHC 33.9 g/dL (31.0-37.0); MCV 95.6 fL (80.0-100.0); Mean Platelet Volume 8.2; Monocytes # (A) 0.4 k/uL (0-1.0); Monocytes % (A) 6 %; Neutrophils % (A) 67 %; RBC 3.63 m/uL (3.80-5.40); RDW 14.1 % (11.5-15.5)
[2024-02-27 14:40] LABS: Partial Thromboplastin Time 28.2 sec (22.0-30.0); Prothrombin Time 10.5 sec (10.0-12.5)
[2024-02-27 14:42] LABS: ALT 12 U/L (4-34); AST 24 U/L (14-36); African American GFR (CKD) 62 (>60 ml/min/1.73 sqM); Albumin 4.4 g/dL (3.5-5.0); Alkaline Phosphatase 65 U/L (38-126); Anion Gap 11 mmol/L; Blood Urea Nitrogen 26 mg/dL (7-17); Calcium 9.1 mg/dL (8.4-10.2); Carbon Dioxide 27 mmol/L (22-30); Chloride 102 mmol/L (98-107); Glucose 172 mg/dL (74-99); Magnesium 2.1 mg/dL (1.6-2.3); Non-African American GFR(CKD) 54 (>60 ml/min/1.73 sqM); Sodium 140 mmol/L (137-145); Total Bilirubin 0.5 mg/dL (0.2-1.3); Total Protein 7.1 g/dL (6.3-8.2)
--- NOTE | 2024-02-27 15:09 | ED ---
Chest Pain HPI - General Source: patient, RN notes reviewed Mode of arrival: ambulatory Limitations: no limitations - History of Present Illness Complaint: chest pain <MariMoises schaffer - Last Filed: 02/27/24 15:06> <Renate Mello - Last Filed: 03/02/24 22:54> - General Chief Complaint: Chest Pain Stated Complaint: Chest pain Time Seen by Provider: 02/27/24 13:41 - History of Present Illness Initial Comments: Quick note: This is a 73-year-old female with history of AMI, internal defibrillator, DM and hypertension presenting with mid chest pain x 2 weeks. Patient denies radiating pain, dyspnea, sweating, presyncope. Endorses daily use of ASA 81 and clopidogrel following placement of 4 coronary artery stents. Patient also mentions current shingles outbreak on her left lower flank x 3 weeks and bruising on her right flank following a fall x3 weeks ago. (Mari,Moises) Is a 73-year-old female history ACS, diabetes, internal defibrillator presenting today for substernal chest pain. Patient states that she has had and being treated for herpes zoster on the left side of her ribs for the last 2 weeks. She is taking Lyrica for that pain. About a week ago she got tangled in the sheets by her bed, and fell onto her right side and sustained a bruise to her right ribs. Over the course of the last week she has noticed substernal chest pressure that intermittently radiates towards her left side. It does not occur with any particular pattern, does not seem to be exacerbated with activities. Patient thinks it may be secondary to her fall or shingles however it is different than the pain that she has had with her shingles. Otherwise the patient denies fevers, shaking chills, cough, hemoptysis, shortness of breath, abdominal pain, nausea, vomiting, melena or hematochezia. She states that she always has lower extremity swelling due to her diabetes and heart failure. This is not new for her. States her last AK was in 2011. (Renate Mello) - Related Data Home Medications Medication Instructions Recorded Confirmed Aspirin 81 mg PO DAILY 02/27/24 02/27/24 Calcium Carbonate/Vitamin D3 1 tab PO HS 02/27/24 02/27/24 [Calcium 600 mg-Vit D3 10 mcg (400 Unit)] Cholecalciferol [Vitamin D3 (25 25 mcg PO HS 02/27/24 02/27/24 Mcg = 1000 Iu)] Clopidogrel [Plavix] 75 mg PO DAILY 02/27/24 02/27/24 Fish Oil/Dha/Epa [Fish Oil 1,200 1 cap PO HS 02/27/24 02/27/24 mg Fish Oil] Furosemide [Lasix] 40 mg PO BID 02/27/24 02/27/24 Isosorbide Mononitrate ER [Imdur] 30 mg PO DAILY 02/27/24 02/27/24 Levothyroxine Sodium [Synthroid] 50 mcg PO DAILY 02/27/24 02/27/24 Magnesium Oxide [Magnesium] 500 mg PO HS 02/27/24 02/27/24 Metoprolol Succinate (ER) [Toprol 50 mg PO DAILY 02/27/24 02/27/24 XL] Nitroglycerin Sl Tabs [Nitrostat] 0.4 mg SUBLINGUAL Q5M PRN 02/27/24 02/27/24 Pregabalin [Lyrica] 50 mg PO BID 02/27/24 02/27/24 Sacubitril/Valsartan [Entresto 49 1 tab PO BID 02/27/24 02/27/24 mg-51 mg Tablet] Simvastatin [Zocor] 40 mg PO HS 02/27/24 02/27/24 allopurinoL [Zyloprim] 100 mg PO DAILY 02/27/24 02/27/24 metFORMIN HCL [Glucophage] 500 mg PO Q2D 02/27/24 02/27/24 Allergies Allergy/AdvReac Type Severity Reaction Status Date / Time nickel Allergy Unknown Verified 02/27/24 16:25 Review of Systems ROS Other: All systems not noted in ROS Statement are negative. <Moises Guerra - Last Filed: 02/27/24 15:06> ROS Other: All systems not noted in ROS Statement are negative. <Renate Mello - Last Filed: 03/02/24 22:54> ROS Statement: Those systems with pertinent positive or pertinent negative responses have been documented in the HPI. EKG Findings - EKG Comments: EKG Findings:: Sinus rhythm with occasional PVCs, rate 60 bpm IN interval 185 ms QRS duration 157 ms QT/QTc 45/503 ms, right bundle branch block, Q-wave in potential Q-wave in V3/V4, no clear ST elevations or depressions, no prior for comparison <Renate Mello - Last Filed: 03/02/24 22:54> Past Medical History Past Medical History: Diabetes Mellitus, Hyperlipidemia, Hypertension History of Any Multi-Drug Resistant Organisms: None Reported Past Surgical History: Pacemaker Additional Past Surgical History / Comment(s): defibrillator Past Psychological History: No Psychological Hx Reported Smoking Status: Former smoker Past Alcohol Use History: Daily Past Drug Use History: None Reported <Moises Guerra - Last Filed: 02/27/24 15:06> General Exam Limitations: no limitations <Moises Guerra - Last Filed: 02/27/24 15:06> <Renate Mello - Last Filed: 03/02/24 22:54> - General Exam Comments Initial Comments: Visual Physical Exam Vital signs reviewed General: Well-appearing, nontoxic, no acute distress. Head: Normocephalic, atraumatic Eyes: PERRLA, EOMI ENT: Airway patent Chest: Nonlabored breathing Skin: No visual rash, normal skin tone Neuro: Alert and oriented 3 Musculoskeletal: No gross abnormalities (Eden Guerraling) PE: CONSTITUTIONAL: No apparent distress, well appearing SKIN: Warm, dry, no jaundice, slightly erythematous, well-healing lesions along the left rib cage distribution without exudates, green-purple hematoma along the right rib cage EYES: Pupils are equally round, extraocular movements intact without nystagmus, clear conjunctiva, non-icteric sclera HENT: Normocephalic, atraumatic, moist mucus membranes, oropharynx clear without exudates NECK: , Full range of motion, normal appearance PULMONARY: Clear to auscultation without wheezes, rhonchi, or rales, normal excursion, no accessory muscle use and no stridor CARDIOVASCULAR: Regular rate, rhythm, normal S1 and S2. No appreciated murmurs, rubs or gallops. Strong radial pulses with intact distal perfusion. No lower extremity edema, no chest wall tenderness to palpation GASTROINTESTINAL: Soft, active bowel sounds throughout, non-tender, non- distended, no palpable masses, no rebound or guarding. No hepatosplenomegaly GENITOURINARY: MUSCULOSKELETAL: Extremities have no gross deformity, no edema, redness, or swelling. No calf swelling NEUROLOGIC:_a/o x 3, GCS 15, normal mentation and speech. Moves all extremities x 4 without motor or sensory deficit PSYCHIATRIC:_normal mood and affect, thought process is clear and linear (Renate Mello) Course Vital Signs 02/27/24 02/27/24 02/28/24 13:27 17:49 02:20 Temperature 98.6 F 98.6 F 97.8 F Pulse Rate 78 70 63 Respiratory 16 17 19 Rate Blood Pressure 133/64 128/87 122/91 O2 Sat by Pulse 96 98 99 Oximetry Chest Pain MDM <Moises Guerra - Last Filed: 02/27/24 15:06> <Renate Mello - Last Filed: 03/02/24 22:54> - MDM I completed the quick note portion of this chart signed EMILY Jacobs (Moises Guerra) Was pt. sent in by a medical professional or institution (TENA Guo, PRECIPITATOR SUPERVISOR, urgent care, hospital, or alf...) When possible be specific @Yes patient was sent in by her primary care provider Did you speak to anyone other than the patient for history (EMS, parent, family, police, friend...)? What history was obtained from this source @ -No Did you review nursing and triage notes (agree or disagree)? Why? @ -I reviewed nursing and triage notes Were old charts reviewed (outside hosp., previous admission, EMS record, old EKG, old radiological studies, urgent care reports/EKG's, alf records)? Report findings @ -Medical records reviewed Differential Diagnosis (chest pain, altered mental status, abdominal pain women, abdominal pain men, vaginal bleeding, weakness, fever, dyspnea, syncope, headache, dizziness, GI bleed, back pain, seizure, CVA, palpatations, mental health, musculoskeletal)? @ -Differential Chest Pain: Stable Angina, Unstable Angina, STEMI, NSTEMI pericarditis, pleurisy, chostochondirits, Pneumothorax, Musculoskeletal, Esophageal Spasm GERD, Cholecystitis, Pancreatitis, Zoster, this is not meant to be an all-inclusive list. EKG interpreted by me (3pts min.). @ -As above X-rays interpreted by me (1pt min.). No cardiomegaly or consolidation CT interpreted by me (1pt min.). @ -None done U/S interpreted by me (1pt. min.). @ -None done What testing was considered but not performed or refused? (CT, X-rays, U/S, labs)? Why? @ -None What meds were considered but not given or refused? Why? @ -None Did you discuss the management of the patient with other professionals (professionals i.e. Dr., PA, PRECIPITATOR SUPERVISOR, lab, RT, psych nurse, social media specialist, club car attendant, teacher, ammunition officer, machine adjuster leader case trim)? Give summary @ -No Was smoking cessation discussed for >3mins.? @ -No Was critical care preformed (if so, how long)? @ -No Were there social determinants of health that impacted care today? How? (Homelessness, low income, unemployed, alcoholism, drug addiction, transportation, low edu. Level, literacy, decrease access to med. care, residential, rehab)? @ -No Was there de-escalation of care discussed even if they declined (Discuss DNR or withdrawal of care, Hospice)? @ -No What co-morbidities impacted this encounter? (DM, HTN, Smoking, COPD, CAD, Cancer, CVA, ARF, Chemo, Hep., AIDS, mental health diagnosis, sleep apnea, m orbid obesity)? @ -CAD, DM, CHF Was patient admitted / discharged? Hospital course, mention meds given and route, prescriptions, significant lab abnormalities, going to OR and other pertinent info. @ admission, patient is a 73-year-old female past medical history of CAD, diabetes, CHF presenting today for substernal chest pressure. Recent history of shingles started 2 weeks ago however pain is different from shingles pain. Complete history and physical exam performed. EKG reviewed. There is no prior for comparison. No STEMI. Labs reviewed- Initial troponin wnl. Patient has a heart score of at least 5 so she will be admitted for further observation and chest pain workup. Patient agreeable with plan. Case was discussed with Dr. Llanes who kindly accepted patient for admission. Undiagnosed new problem with uncertain prognosis? @ -No Drug Therapy requiring intensive monitoring for toxicity (Heparin, Nitro, Insulin, Cardizem)? @ -No Were any procedures done? @ -No Diagnosis/symptom? @ Chest pain Acute, or Chronic, or Acute on Chronic? @acute Uncomplicated (without systemic symptoms) or Complicated (systemic symptoms)? @complicated Side effects of treatment? @ -No Exacerbation, Progression, or Severe Exacerbation? @ -No Poses a threat to life or bodily function? How? (Chest pain, [place], [place], pneumonia, PE, COPD, DKA, ARF, appy, cholecystitis, CVA, Diverticulitis, Homicidal, Suic idal, threat to staff... and all critical care pts) @ -Potentially, if secondary to ACS and left untreated could lead to STMEI (Renate Mello) Disposition <Moises Guerra - Last Filed: 02/27/24 15:06> <Renate Mello - Last Filed: 03/02/24 22:54> Clinical Impression: Chest pain Disposition: ADMITTED IP TO THIS HOSP Condition: Stable
--- NOTE | 2024-02-27 15:24 | XR ---
EXAMINATION TYPE: XR chest 2V DATE OF EXAM: 02/27/2024 2:51 PM COMPARISON: None. CLINICAL INDICATION: Female, 73 years old with history of Chest Pain, TECHNIQUE: XR chest 2V view(s) obtained. FINDINGS: The heart size is normal. Pacemaker overlies left chest. The pulmonary vasculature is normal. The lungs are clear. IMPRESSION: 1. No acute pulmonary process. [facility], Workstation: [facility], 02/27/2024 3:21 PM
[2024-02-27 15:31] LABS: Platelet Count 91 k/uL (150-450)
[2024-02-27] MEDS ORDERED: ONDANSETRON 4 MG/2 ML VIAL IVP PRN (16:44)
[2024-02-27] MEDS ORDERED: NALOXONE 0.4 MG/ML 1 ML VIAL IV PRN (16:44)
[2024-02-27] MEDS ORDERED: NITROGLYCERIN SL TABS 0.4 MG TAB SUBLINGUAL PRN (17:52)
[2024-02-27] MEDS: ACETAMINOPHEN TAB 325 MG TAB PO PRN (18:03)
[2024-02-27 21:42] LABS: Glucose,Whole Blood 111 mg/dL (70-110)
[2024-02-27] MEDS: ATORVASTATIN 20 MG TAB PO SCH (21:44)
[2024-02-27] MEDS: SACUBITRIL/VALSARTAN 49 MG-51 MG TABLET PO SCH (21:44)
[2024-02-27] MEDS: FAMOTIDINE 20 MG TAB PO SCH (22:18)
[2024-02-27] MEDS: PREGABALIN 50 MG CAP PO SCH (22:18)
[2024-02-27] MEDS: CHOLECALCIFEROL 25 MCG (1000 IU) TABLET PO SCH (22:18)
[2024-02-27] MEDS: MAGNESIUM OXIDE 400 MG TAB PO SCH (22:18)
[2024-02-27] MEDS: CALCIUM CARB-VIT D 500 MG-5 MCG TAB PO SCH (22:18)
[2024-02-28] MEDS: LEVOTHYROXINE 50 MCG TAB PO SCH (06:01)
[2024-02-28] MEDS: METOPROLOL SUCCINATE (ER) 50 MG TAB.ER.24H PO SCH (09:05)
[2024-02-28] MEDS: ISOSORBIDE MONONITRATE ER 30 MG TAB.ER.24H PO SCH (09:05)
[2024-02-28] MEDS: ASPIRIN 81 MG PO SCH (09:05)
[2024-02-28] MEDS: FUROSEMIDE 40 MG TAB PO SCH (09:05)
[2024-02-28] MEDS: allopurinoL 100 MG TAB PO SCH (09:05)
[2024-02-28 14:18] LABS: Basophils % (A) 1 %; Eosinophils # (A) 0.1 k/uL (0-0.7); Eosinophils % (A) 3 %; HCT 37.2 % (34.0-46.0); HGB 12.4 gm/dL (11.4-16.0); Lymphocytes # (A) 1.3 k/uL (1.0-4.8); Lymphocytes % (A) 29 %; MCH 31.9 pg (25.0-35.0); MCHC 33.2 g/dL (31.0-37.0); MCV 96.2 fL (80.0-100.0); Mean Platelet Volume 8.1; Monocytes # (A) 0.3 k/uL (0-1.0); Monocytes % (A) 6 %; Neutrophils # (A) 2.8 k/uL (1.3-7.7); Neutrophils % (A) 60 %; Platelet Count 102 k/uL (150-450); RBC 3.87 m/uL (3.80-5.40); RDW 14.1 % (11.5-15.5); WBC 4.6 k/uL (3.8-10.6)
[2024-02-28 14:29] LABS: African American GFR (CKD) 59 (>60 ml/min/1.73 sqM); Anion Gap 9 mmol/L; Blood Urea Nitrogen 24 mg/dL (7-17); Calcium 9.4 mg/dL (8.4-10.2); Carbon Dioxide 27 mmol/L (22-30); Chloride 102 mmol/L (98-107); Glucose 156 mg/dL (74-99); Non-African American GFR(CKD) 51 (>60 ml/min/1.73 sqM); Sodium 138 mmol/L (137-145)
[2024-02-28 14:39] VITALS: BP 90/52; PULSE 64; RESP 17; TEMP 97.4
[2024-02-28 14:39] LABS: Potassium 4.4 mmol/L (3.5-5.1)
[2024-02-28] MEDS: LIDOCAINE 4% PATCH TOPICAL ONE (14:48)
[2024-02-28] MEDS: CLOPIDOGREL 75 MG TAB PO SCH (14:48)
--- NOTE | 2024-02-28 23:49 | P.CRDCN ---
History of Present Illness Consult date: 02/28/24 History of present illness: HISTORY OF PRESENTING ILLNESS: 73-year-old female with past medical history of cardiomyopathy with a AICD, prior history of [place], CAD, hypertension, type 2 diabetes. She follows up with Dr. Vandana Dwyer. She presented to the hospital because of concerns of left- sided chest pain and a fall at home. She reports that she is recovering from a shingles flareup which is affecting her left side of chest. Her chest pain is mostly related with it. Along with it yesterday patient was trying to get out of the bed when she got tripped in the blanket and had a mechanical fall. Thereafter she injured the right side of her chest. At the time of evaluation patient denies any chest pressure-like symptoms. Admission Cardiac Labs: Hemoglobin 11.8, BUN 26, creatinine 1.04, troponin x 3 were negative, Admission testing: EKG shows sinus rhythm with intermittent PACs and PVCs. Right bundle branch block morphology Chest x-ray did not show any acute cardiopulmonary process or rib fractures REVIEW OF SYSTEMS: 14 point review of system is negative except what is mentioned above in HPI. PHYSICAL EXAMINATION: Neck: Brisk carotid upstroke, no jugular venous distention. Lungs: Clear to auscultation. Heart: Regular rate and rhythm, S1-S2, , no murmur or rub. Small bruise on the right lower chest. Left lower chest has shingles michele Abdomen: Soft nontender, positive bowel sounds. Extremities: No edema, intact distal pulses. Neuro: Alert, oritented, no focal deficits. Detailed neuro exam was not performed. ASSESSMENT: # Atypical chest pain, likely related to musculoskeletal from a mechanical fall and shingles flareup # Prior history of cardiomyopathy, currently appearing euvolemic, NYHA class II # Prior history of AICD placement # Occasional PVCs # Prior history of CAD PLAN: Continue current cardiac medications which includes aspirin, Entresto, metoprolol, simvastatin, Plavix, Imdur At this time patient's chest pain is most likely musculoskeletal. She has been ruled out of ACS with negative ECG and troponin. Patient is cleared from cardiovascular standpoint. I recommend following up with primary surveillance technician in next 1 to 2 weeks. If chest pain symptoms recur, I advised her to come back to the ER. Rajinder Mchugh MD, FACC, RPVI Thank you for allowing [facility] to participate in this patient's care. Feel free to reach out in case of any followup questions. Past Medical History Past Medical History: Diabetes Mellitus, Hyperlipidemia, Hypertension Additional Past Medical History / Comment(s): Peripheral artery Disease, Neuro venu in feet. History of Any Multi-Drug Resistant Organisms: None Reported Past Surgical History: Pacemaker Additional Past Surgical History / Comment(s): defibrillator Past Anesthesia/Blood Transfusion Reactions: Postoperative Nausea & Vomiting (PONV) Type of Cardiac Device: AICD Device Placement Date:: 2013 Past Psychological History: No Psychological Hx Reported Smoking Status: Former smoker Past Alcohol Use History: Daily Additional Past Alcohol Use History / Comment(s): patient states she typically drinks 2 alcoholic beverages per day when she drinks. Past Drug Use History: None Reported Medications and Allergies Home Medications Medication Instructions Recorded Confirmed Type Aspirin 81 mg PO DAILY 02/27/24 02/27/24 History Calcium Carbonate/Vitamin D3 1 tab PO HS 02/27/24 02/27/24 History [Calcium 600 mg-Vit D3 10 mcg (400 Unit)] Cholecalciferol [Vitamin D3 (25 25 mcg PO HS 02/27/24 02/27/24 History Mcg = 1000 Iu)] Clopidogrel [Plavix] 75 mg PO DAILY 02/27/24 02/27/24 History Fish Oil/Dha/Epa [Fish Oil 1,200 1 cap PO HS 02/27/24 02/27/24 History mg Fish Oil] Furosemide [Lasix] 40 mg PO BID 02/27/24 02/27/24 History Isosorbide Mononitrate ER [Imdur] 30 mg PO DAILY 02/27/24 02/27/24 History Levothyroxine Sodium [Synthroid] 50 mcg PO DAILY 02/27/24 02/27/24 History Magnesium Oxide [Magnesium] 500 mg PO HS 02/27/24 02/27/24 History Metoprolol Succinate (ER) [Toprol 50 mg PO DAILY 02/27/24 02/27/24 History XL] Nitroglycerin Sl Tabs [Nitrostat] 0.4 mg SUBLINGUAL Q5M PRN 02/27/24 02/27/24 History Pregabalin [Lyrica] 50 mg PO BID 02/27/24 02/27/24 History Sacubitril/Valsartan [Entresto 49 1 tab PO BID 02/27/24 02/27/24 History mg-51 mg Tablet] Simvastatin [Zocor] 40 mg PO HS 02/27/24 02/27/24 History allopurinoL [Zyloprim] 100 mg PO DAILY 02/27/24 02/27/24 History metFORMIN HCL [Glucophage] 500 mg PO Q2D 02/27/24 02/27/24 History Allergies Allergy/AdvReac Type Severity Reaction Status Date / Time nickel Allergy Unknown Verified 02/27/24 16:25 Physical Exam Vitals: Vital Signs Temp Pulse Pulse Resp BP BP Pulse Ox 02/28/24 14:39 97.4 F L 64 17 90/52 94 L 02/28/24 07:00 98.0 F 61 15 108/65 97 02/28/24 03:00 97.4 F L 62 18 127/80 100 02/28/24 02:20 97.8 F 63 19 122/91 99 Intake and Output 02/28/24 02/28/24 02/29/24 14:59 22:59 06:59 Other: # Voids 3 Results 02/28/24 13:52 02/28/24 13:52 CBC 02/28/24 Range/Units 13:52 WBC 4.6 (3.8-10.6) k/uL RBC 3.87 (3.80-5.40) m/uL Hgb 12.4 (11.4-16.0) gm/dL Hct 37.2 (34.0-46.0) % Plt Count 102 L (150-450) k/uL Comprehensive Metabolic Panel 02/28/24 Range/Units 13:52 Sodium 138 (137-145) mmol/L Potassium 4.4 (3.5-5.1) mmol/L Chloride 102 (98-107) mmol/L Carbon Dioxide 27 (22-30) mmol/L BUN 24 H (7-17) mg/dL Creatinine 1.08 H (0.52-1.04) mg/dL Glucose 156 H (74-99) mg/dL Calcium 9.4 (8.4-10.2) mg/dL Intake and Output 02/28/24 02/28/24 02/29/24 14:59 22:59 06:59 Other: # Voids 3 02/28/24 13:52 02/28/24 13:52
== END 2024-02-28 15:51 | disposition home or self-care (01) ==
LOC: EC 13:24 → 6NMEDSUR 16:44
PROVIDERS: ADMIT Internal Medicine; ATTEND Internal Medicine
DX: R07.89 Other chest pain (principal); I11.0 Hypertensive heart disease with heart failure; I50.9 Heart failure, unspecified; I49.3 Ventricular premature depolarization; I49.1 Atrial premature depolarization; I45.10 Unspecified right bundle-branch block; I25.10 Atherosclerotic heart disease of native coronary artery without angina pectoris; I42.9 Cardiomyopathy, unspecified; R07.2 Precordial pain; E11.9 Type 2 diabetes mellitus without complications; B02.9 Zoster without complications; S29.9XXA Unspecified injury of thorax, initial encounter; W01.0XXA Fall on same level from slipping, tripping and stumbling without subsequent striking against object, initial encounter; I25.2 Old myocardial infarction; Z79.82 Long term (current) use of aspirin; Z79.02 Long term (current) use of antithrombotics/antiplatelets; Z79.890 Hormone replacement therapy; Z79.84 Long term (current) use of oral hypoglycemic drugs; Z79.899 Other long term (current) drug therapy; Z91.048 Other nonmedicinal substance allergy status; Z95.5 Presence of coronary angioplasty implant and graft; Z87.891 Personal history of nicotine dependence
CPT/HCPCS: 99285; 36415; 93005; 80053; 80048; 83690; 83735; 84484; 85025 ×2; 85610; 85730; 71046; G0378 ×2

== ENCOUNTER → 2024-05-13 | Outpatient (CLI) | payer MEDICARE, OTHER ==
--- NOTE | 2024-05-13 08:48 | US ---
"EXAMINATION TYPE: US abdomen complete DATE OF EXAM: 05/13/2024 COMPARISON: US 2021 CLINICAL INDICATION: Female, 73 years old with history of R94.5 ABNORMAL RESULTS OF LIVER FUNCTION ST UDIES; Abnormal results of liver function studies. Hx AAA. Bloating, some left sided pain, no back pa in. TECHNIQUE: Grayscale and color Doppler imaging of the abdomen was performed. FINDINGS: EXAM MEASUREMENTS: Liver Length: 13.5 cm Gallbladder Wall: 0.29 cm CBD: 0.47 cm, color Doppler imaging was utilized to isolate the common bile duct for measurement. Spleen: 10.7 cm Right Kidney: 9.2 x 4.4 x 4.4 cm Left Kidney: 10.0 x 4.5 x 4.8 cm LICENSE AND PERMIT SPECIALIST NOTES: Exam is limited due to gas. Pancreas: Not well visualized Liver: *Appears very coarse in echotexture. Gallbladder: *Hyperechoic area seen attached to the gallbladder wall: 0.4 x 0.3 x 0.3 cm. Evidence for sonographic Barton's sign: No CBD: wnl Spleen: wnl Right Kidney: wnl, No hydronephrosis, calculi or masses seen Left Kidney: *Hyperechoic focus seen at mid: 0.5 x 0.8 x 0.4 cm. Upper IVC: wnl Abd Aorta: AAA seen, distal measures 5.8 x 5.6 cm. Previous AAA seen in 2021 measured 4.1 x 3.8 cm. Bifurcation was obscured. IMPRESSION: 1. Abdominal aortic aneurysm identified measuring up to 5.8 cm. If not already performed CT angiogra m of the abdomen and surgical consultation recommended. 2. Hepatic steatosis. 3. Gallbladder 4 mm polyp versus adherent gallstone. A Yellow level critical message alert has been initiated for [facility] via the [employer] | Criti betty Results System on 05/13/2024 8:46 AM. This message alert has been sent to [facility] via the [employer] provided by the clinician for the receipt of Radiology Critical Findings. Message ID [id number]. [facility], , 05/13/2024 8:46 AM"
== END | disposition home or self-care (01) ==
LOC: RADUSWWP 07:50
PROVIDERS: ATTEND Internal Medicine Hematology & Oncology
DX: D69.6 Thrombocytopenia, unspecified (principal); E11.9 Type 2 diabetes mellitus without complications; R94.5 Abnormal results of liver function studies; E78.5 Hyperlipidemia, unspecified; I72.9 Aneurysm of unspecified site; I71.40 Abdominal aortic aneurysm, without rupture, unspecified; K76.0 Fatty (change of) liver, not elsewhere classified
CPT/HCPCS: 76700

== ENCOUNTER → 2024-05-26 | Outpatient (CLI) | payer MEDICARE, OTHER ==
[2024-05-26 10:33] LABS: Basophils # (A) 0.07 X 10*3/uL (0.00-0.10); Basophils % (A) 1.4 %; Eosinophils # (A) 0.17 X 10*3/uL (0.04-0.35); Eosinophils % (A) 3.3 %; HCT 43.1 % (37.2-46.3); HGB 14.1 g/dL (12.0-15.0); Lymphocytes # (A) 1.82 X 10*3/uL (0.90-5.00); Lymphocytes % (A) 35.8 %; MCH 31.4 pg (27.0-32.0); MCHC 32.7 g/dL (32.0-37.0); Monocytes # (A) 0.51 X 10*3/uL (0.20-1.00); NRBC Per 100 WBC 0 X 10*3/uL (0.00-0.01); Neutrophils % (A) 49.3 %; Platelet Count 107 X 10*3/uL (140-440); RBC 4.49 X 10*6/uL (4.10-5.20); RDW 13.5 % (11.5-14.5); WBC 5.08 X 10*3/uL (4.50-10.00)
[2024-05-26 11:34] LABS: Urine Creatinine 76.1 mg/dL (28.0-217.0)
[2024-05-26 16:13] LABS: ALT 14 U/L (8-44); AST 28 U/L (13-35); Albumin 4.7 g/dL (3.8-4.9); Albumin/Globulin Ratio 1.47 Ratio (1.60-3.17); Alkaline Phosphatase 83 U/L (41-126); BUN/Creat Ratio 17.75 Ratio (12.00-20.00); Blood Urea Nitrogen 21.3 mg/dL (9.0-27.0); Calcium 9.9 mg/dL (8.7-10.3); Carbon Dioxide 21.4 mmol/L (21.6-31.8); Chloride 99 mmol/L (96-109); Chol/HDL Ratio 5.14 Ratio; Globulin 3.2 g/dL (1.6-3.3); Glucose 117 mg/dL (70-110); Phosphorus 3.9 mg/dL (2.4-5.1); Sodium 139 mmol/L (135-145); Total Bilirubin 0.4 mg/dL (0.3-1.2); Total Protein 7.9 g/dL (6.2-8.2); Uric Acid 4.8 mg/dL (2.9-7.7)
== END | disposition home or self-care (01) ==
LOC: LABWHC1 07:03
PROVIDERS: ATTEND Family Medicine
DX: E11.65 Type 2 diabetes mellitus with hyperglycemia (principal); E03.9 Hypothyroidism, unspecified; K14.9 Disease of tongue, unspecified; N18.31 Chronic kidney disease, stage 3a
CPT/HCPCS: 36415; 80053; 80061; 82043; 82306; 82570; 82607; 82746; 83036; 83721; 84100; 84439; 84443; 84550; 85025

== ENCOUNTER → 2024-06-07 | Outpatient (CLI) | payer MEDICARE, OTHER ==
[2024-06-07 13:22] LABS: African American GFR (CKD) 58 (>60 ml/min/1.73 sqM); Blood Urea Nitrogen 36 mg/dL (7-17); Non-African American GFR(CKD) 50 (>60 ml/min/1.73 sqM)
--- NOTE | 2024-06-07 19:28 | CT ---
EXAMINATION TYPE: CT angio abd aorta w/Runoff CT DLP: 1935.7 mGycm, Automated exposure control for dose reduction was used. 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 Noncontrast imaging was obtained of the abdomen an d pelvis before the administration of intravenous contrast. Patient was given Isovue 370, 100 cc intr avenously. 3-D reconstructed images and maximum intensity projection images were obtained of the abd omen, pelvis, and lower extremities. FINDINGS: CTA Abdomen and pelvis: Atherosclerotic plaquing is identified within the abdominal aorta. Fusiform a bdominal aortic aneurysm involving the mid to distal portion measuring 5.3 x 5.2 cm (series 2, image 75). No evidence for intramural hematoma or dissection. Moderate eccentric mural thrombus identified. The origins of the superior mesenteric artery, renal arteries, inferior mesenteric artery, and scott c axis are patent. Mild stenosis at the origin of the SMA secondary to calcified plaque. Mild stenosi s of the origin of the right renal artery secondary to calcified plaque. Atherosclerotic plaquing inv olving the bilateral common iliac arteries. Vascular stent involving the distal aspect of the left co mmon iliac artery with extension into the left external iliac artery. Vascular stent involving the ri ght external iliac artery. These are both patent. Moderate amount of calcified plaque involving the b ilateral patent internal iliac arteries with regions of moderate short segment stenosis. The external iliac arteries are patent with atherosclerotic plaque identified. No high-grade stenosis identified. CTA Lower extremities: Right: The common femoral arteries patent without significant stenosis. Postsurgical changes with sup erficial femoral artery graft is identified. This is patent with mild amount of plaque identified mor e proximally. Stent is identified involving the more mid to distal portion and is patent. The deep fe moral artery is patent with at least moderate stenosis at its origin. The popliteal artery is patent. The tibioperoneal trunk is patent. The proximal portion of the anterior tibial artery is patent. The re is poor visualization near the ankle joint. The posterior tibial artery is patent and crosses the ankle joint. Poor visualization of the peroneal artery. Left: The common femoral artery is patent without significant stenosis. Postsurgical changes in the s uperficial femoral artery graft identified. This is patent with mild amount of plaque identified more proximally. The deep femoral artery demonstrates focal regions of high-grade stenosis stenosis versu s short segment occlusion with distal reconstitution. The popliteal artery is patent multifocal short segment mild stenosis secondary to calcified plaque. The tibial peroneal trunk is patent. The primary therapist ior tibial artery is patent and crosses the ankle joint. The proximal portion of the anterior tibial artery is patent however the mid to distal portion is poorly visualized. Poor visualization of the pe roneal artery just after its origin. VISCERA: The liver, spleen, adrenal glands, kidneys, pancreas, and gallbladder are not optimally enha nced due the arterial phase utilized. LIVER: Unremarkable GALLBLADDER AND BILE DUCTS: Unremarkable. PANCREAS: Unremarkable. SPLEEN: Unremarkable. ADRENAL GLANDS: Unremarkable. KIDNEYS AND URETERS: No evidence of hydronephrosis and bilateral renal vascular calcifications. The k idneys enhance symmetrically. PELVIS BLADDER: Unremarkable REPRODUCTIVE: Unremarkable. ABDOMEN & PELVIS STOMACH AND BOWEL: Small hiatal hernia, duodenum is unremarkable. Scattered distal colonic diverticul a without evidence for acute diverticulitis. No evidence of bowel obstruction. PERITONEUM: No evidence of pneumoperitoneum or free fluid. MUSCULOSKELETAL: No acute osseous abnormalities. Mild multilevel degenerative disc disease. LYMPH NODES: No evidence for lymphadenopathy. SOFT TISSUE/ABDOMINAL WALL: Tiny fat-containing umbilical hernia. Postsurgical changes within the marcelo ateral inguinal regions. LOWER CHEST: Partial visualization of cardiac pacemaker leads terminating in the right atrium and rig ht ventricle. Mitral annulus calcifications. Mild cardiomegaly. Trace anterior pericardial effusion. Moderate coronary artery calcifications. IMPRESSION: 1. Abdominal aortic aneurysm measuring up to 5.3 x 5.2 cm. No evidence for intramural hematoma or di ssection. Vascular surgical consultation is recommended. 2. Moderate atherosclerotic disease involving abdominal aorta and lower extremity vasculature with p ostsurgical changes of the superficial femoral arteries bilaterally as described above. 3. The bilateral posterior tibial arteries cross the ankle joint. The bilateral anterior tibial and p eroneal arteries are poorly visualized distally. Consider further evaluation with angiogram as clinic ally indicated. [facility], , 06/07/2024 7:26 PM
== END | disposition home or self-care (01) ==
LOC: RADCTMAIN 12:33
PROVIDERS: ATTEND Surgery
DX: I71.40 Abdominal aortic aneurysm, without rupture, unspecified (principal); I70.0 Atherosclerosis of aorta
CPT/HCPCS: 82565; 84520; 75635; 36415; Q9967

== ENCOUNTER → 2024-09-03 | Outpatient (CLI) | payer MEDICARE, OTHER ==
[2024-09-03 12:06] LABS: African American GFR (CKD) 57 (>60 ml/min/1.73 sqM); Blood Urea Nitrogen 20 mg/dL (7-17); Non-African American GFR(CKD) 50 (>60 ml/min/1.73 sqM)
--- NOTE | 2024-09-03 17:26 | CT ---
"EXAMINATION TYPE: CT angio abd aorta w/Runoff CT DLP: 1441.5 mGycm, Automated exposure control for dose reduction was used. DATE OF EXAM: 09/03/2024 2:08 PM COMPARISON:CTA abdominal aorta with runoff 06/07/2024 CLINICAL INDICATION:Female, 74 years old with history of I71.43 INFRARENAL ABDOMINAL AORTIC ANEURYSM, WITHO; infrarenal abdominal aneurysm TECHNIQUE: Multiple thin slice sub-millimeter images were obtained through the abdomen, pelvis, and l ower extremities after administration of contrast. Noncontrast imaging was obtained of the abdomen an d pelvis before the administration of intravenous contrast. Patient was given Isovue 370, 100 cc int ravenously. 3-D reconstructed images and maximum intensity projection images were obtained of the ab domen, pelvis, and lower extremities. FINDINGS: CTA Abdomen and pelvis: Atherosclerotic plaquing is identified within the abdominal aorta. Interval p ostsurgical changes from aortobiiliac stent graft beginning at the aortic hiatus. The excluded mid to distal abdominal aortic sac is marginally increased in size measuring 5.6 x 5.3 cm, previously 5.5 x 5.1 cm when measured with similar technique. There is mural thrombus with a single focus of gas jasmyne ntified within the excluded aneurysm sac (series 3, image 54). No evidence for endoleak. The celiac axis is widely patent. The SMA is widely patent with mild calcified plaque. The origin of the ANTWON is not opacified with likely retrograde flow identified. Mild stenosis at the origin of the p atent right renal artery. Mild stenosis at the origin of the left renal artery which is patent. Ather osclerotic plaquing involving the bilateral common iliac arteries. The bilateral common iliac artery stents are widely patent. The internal and external iliac arteries are patent. Multisegment at least moderate stenosis involving the bilateral internal iliac arteries. Short segment distal right externa l iliac artery stenosis secondary to calcified plaque. CTA Lower extremities: Right: The common femoral artery is patent with short segment high-grade stenosis involving the dista l aspect (series 8, image 164). Similar aneurysm dilatation of the distal common femoral artery measu red 1.1 cm. Postsurgical changes with superficial femoral artery graft along its length. There is occ lusion of the superficial femoral artery beginning at its origin with nonopacification of the stent t hroughout. The deep femoral artery is patent with at least moderate stenosis at its origin. Distal re constitution into the popliteal artery which is patent. Multi short segment moderate stenosis of the popliteal artery secondary to calcified plaque. The tibioperoneal trunk is patent. The proximal porti on of the anterior tibial artery is patent. There is poor visualization near the ankle joint. The per steinberg artery is patent to the level of the ankle joint. There is occlusion of the posterior tibial ar milton just after its origin. Left: The common femoral artery is patent with short segment high-grade stenosis involving the distal aspect (series 8, image 173). Postsurgical changes in the superficial femoral artery graft identifie d. This is patent with mild amount of plaque identified more proximally. The deep femoral artery is p atent. The popliteal artery is patent multifocal short segment mild stenosis secondary to calcified p laque. The tibial peroneal trunk is patent. The posterior tibial artery is patent and crosses the ank le joint. The proximal portion of the anterior tibial artery is patent however the mid to distal port ion is poorly visualized. The peroneal artery is patent to the ankle joint. The posterior tibial sanjuanita ry becomes occluded shortly after its origin. VISCERA: The liver, spleen, adrenal glands, kidneys, pancreas, and gallbladder are not optimally enha nced due the arterial phase utilized. LIVER: Unremarkable GALLBLADDER AND BILE DUCTS: Unremarkable. PANCREAS: Unremarkable. SPLEEN: Unremarkable. ADRENAL GLANDS: Unremarkable. KIDNEYS AND URETERS: No evidence of hydronephrosis and bilateral renal vascular calcifications. The k idneys enhance symmetrically. PELVIS BLADDER: Unremarkable REPRODUCTIVE: Unremarkable. ABDOMEN & PELVIS STOMACH AND BOWEL: Small hiatal hernia, duodenum is unremarkable. Scattered distal colonic diverticul a without evidence for acute diverticulitis. No evidence of bowel obstruction. PERITONEUM: No evidence of pneumoperitoneum or free fluid. MUSCULOSKELETAL: No acute osseous abnormalities. Mild multilevel degenerative disc disease. LYMPH NODES: No evidence for lymphadenopathy. SOFT TISSUE/ABDOMINAL WALL: Tiny fat-containing umbilical hernia. Postsurgical changes within the marcelo ateral inguinal regions. LOWER CHEST: Partial visualization of cardiac pacemaker leads terminating in the right atrium and rig ht ventricle. Mitral annulus calcifications. Mild cardiomegaly. Moderate coronary artery calcificatio ns. IMPRESSION: 1. Postsurgical changes from aortobiiliac stent graft. Marginal increase size of excluded abdominal aortic aneurysm measuring 5.6 x 5.3 cm. Previously measured 5.5 x 5.1 cm when measured with similar t echnique. No evidence for endoleak. 2. Moderate to severe atherosclerotic disease involving abdominal aorta and lower extremity vasculat ure with postsurgical changes of the superficial femoral arteries. There is occlusion now of the righ t superficial femoral artery stent beginning at its origin throughout its length. Distal reconstituti on of the right popliteal artery. Fusiform aneurysmal dilatation of the right common femoral artery. Severe short segment stenosis of the bilateral common femoral arteries. 3. 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 Poor visualization of the b ilateral anterior tibial arteries before the ankle joints. A [place] level critical message alert has been initiated for Get Vega DO via the [employer] | Critical Results System on 09/03/2024 5:23 PM. This message alert has been sent to Get Mclaughlin i, DO via the preferences provided by the clinician for the receipt of Radiology Critical Findings. Patrizia essage ID [id number]. [facility], , 09/03/2024 5:24 PM"
== END | disposition home or self-care (01) ==
LOC: RADCTMAIN 11:24
PROVIDERS: ATTEND Surgery
DX: I71.43 Infrarenal abdominal aortic aneurysm, without rupture (principal); I70.0 Atherosclerosis of aorta
CPT/HCPCS: 82565; 84520; 75635; 36415; Q9967